=== PATIENT | male | born 1970 | race Caucasian/White ===

== ENCOUNTER 2016-04-01 14:37 | Inpatient (IN) | payer OTHER, MEDICAID ==
[~2016-04-01] VITALS: Ht 177.8 cm; Wt 90.0 kg
[~2016-04-01 14:37] MED LIST: FLUP5 PO; LITH600 PO
[2016-04-01 16:32] VITALS: BP 133/99
[2016-04-01] MEDS ORDERED: FLUP10 PO (16:42)
[2016-04-01] MEDS ORDERED: INFLUENZA VIRUS VACCINE QVS 2016-17 (3YR+)/PF 60 MCG/0.5 ML SYRINGE IM ONE (19:00)
[2016-04-01 19:32] VITALS: BP 131/87
[2016-04-01] MEDS: ZOLPIDEM TARTRATE 10 MG TABLET PO PRN (20:06)
[2016-04-01] MEDS: FluPHENAZine HCL 10 MG TABLET PO SCH (20:06)
[2016-04-02 05:10] VITALS: BP 120/73
[2016-04-02 08:06] VITALS: BP 144/94
[2016-04-02] MEDS ORDERED: MAG HYDROX/AL HYDROX/SIMETH ES 30 ML SUSPENSION UDCUP PO PRN (08:30)
[2016-04-02] MEDS ORDERED: MAGNESIUM HYDROXIDE SUSPENSION 30 ML UDCUP PO PRN (08:30)
[2016-04-02] MEDS ORDERED: PETROLATUM,WHITE 71 GM JELLY TP PRN (08:30)
[2016-04-02] MEDS ORDERED: ACETAMINOPHEN 325 MG TABLET PO PRN (08:30)
[2016-04-02] MEDS ORDERED: CloNIDine HCL 0.1 MG TABLET PO PRN (08:30)
[2016-04-02] MEDS ORDERED: ALBUTEROL SULFATE HFA 90 MCG/PUFF 8 GM INHALER IH PRN (08:30)
[2016-04-02] MEDS ORDERED: IBUPROFEN 600 MG TABLET PO PRN (08:30)
[2016-04-02] MEDS ORDERED: BENZOCAINE/MENTHOL LOZENGE MM PRN (08:30)
[2016-04-02] MEDS ORDERED: BACITRACIN 28.4 GM OINTMENT TP PRN (08:30)
[2016-04-02] MEDS ORDERED: ONDANSETRON HCL 4 MG TABLET PO PRN (08:30)
[2016-04-02] MEDS: LITHIUM CARBONATE 600 MG CAPSULE PO SCH (09:24)
[2016-04-02] MEDS ORDERED: HALOPERIDOL LACTATE 5 MG/ML VIAL IM ONE (13:30)
[2016-04-02] MEDS ORDERED: DiphenhydrAMINE HCL 50 MG/ML VIAL IM ONE (13:30)
[2016-04-02] MEDS ORDERED: LORazepam 2 MG/ML VIAL IM ONE (13:30)
[2016-04-02 16:32] VITALS: BP 124/72
[2016-04-02] MEDS: FluPHENAZine HCL 10 MG TABLET PO SCH (20:06)
[2016-04-03 07:06] VITALS: BP 137/79
[2016-04-03 07:56] LABS: BASOPHILS % (AUTO) 0.7 % (0.0-2.0); EOSINOPHILS % (AUTO) 3.3 % (1.0-6.0); HEMATOCRIT 44.8 % (41-53); LYMPHOCYTES # (AUTO) 2.1 K/uL (1.0-4.8); LYMPHOCYTES % (AUTO) 22.4 % (22.0-44.0); MEAN CORPUSCULAR HEMOGLOBIN 30.6 pg (26.0-34.0); MEAN CORPUSCULAR HGB CONC 33.5 G/dL (31.0-37.0); MEAN CORPUSCULAR VOLUME 91 fL (80-100); MONOCYTES # (AUTO) 0.5 K/uL (0.1-1.0); MONOCYTES % (AUTO) 5.6 % (2.0-9.0); NEUTROPHILS # (AUTO) 6.3 K/uL (1.8-7.7); PLATELET COUNT (AUTO) 316 K/uL (150-450); RED BLOOD CELL COUNT(AUTO) 4.91 MIL/uL (4.50-5.90); WHITE BLOOD COUNT (AUTO) 9.2 K/uL (4.5-11.0)
[2016-04-03 08:03] LABS: ALANINE AMINOTRANSFERASE 34 U/L (12-78); ALBUMIN 3.4 g/dL (3.4-5.0); ANION GAP 11 mmol/L (8-16); ASPARTATE AMINOTRANSFERASE 11 U/L (15-37); BILIRUBIN,TOTAL 0.2 mg/dL (0.1-1.0); CALCIUM, TOTAL 8.6 mg/dL (8.8-10.5); CARBON DIOXIDE 25 mmol/L (22-29); CHLORIDE 107 mmol/L (98-107); CREATININE 0.82 mg/dL (0.60-1.30); GLOMERULAR FILTR. RATE CALC > 60 mL/min (>60); POTASSIUM 3.1 mmol/L (3.5-5.1); SODIUM SERUM 143 mmol/L (136-145); TOTAL PROTEIN, SERUM 6.4 g/dL (6.4-8.2); UREA NITROGEN, BLOOD 15 mg/dL (7-18)
[2016-04-03] MEDS: FluPHENAZine HCL 10 MG TABLET PO SCH ×2 (09:44→16:33)
[2016-04-03] MEDS: LITHIUM CARBONATE 600 MG CAPSULE PO SCH (09:44)
[2016-04-03 16:01] VITALS: BP 128/85
[2016-04-03] MEDS ORDERED: LORazepam 2 MG/ML VIAL IM ONE (16:15)
[2016-04-03] MEDS ORDERED: DiphenhydrAMINE HCL 50 MG/ML VIAL IM ONE (16:15)
[2016-04-03] MEDS ORDERED: FluPHENAZine HCL 2.5 MG/ML INJ IM ONE (16:15)
[2016-04-03 16:30] VITALS: BP 120/78
[2016-04-03 16:45] VITALS: BP 126/86
[2016-04-03 17:30] VITALS: BP 119/79
[2016-04-03] MEDS ORDERED: POTASSIUM CHLORIDE 10% 40 MEQ/30 ML LIQUID UDCUP PO ONE (18:15)
[2016-04-03] MEDS: DIVALPROEX SODIUM 500 MG ER TABLET PO SCH (20:24)
[2016-04-04 07:04] VITALS: BP 129/80
[2016-04-04 08:08] VITALS: BP 140/86
[2016-04-04] MEDS: FluPHENAZine HCL 10 MG TABLET PO SCH ×2 (09:11→16:16)
[2016-04-04] MEDS: LITHIUM CARBONATE 600 MG CAPSULE PO SCH (09:11)
[2016-04-04 16:00] VITALS: BP 124/81
[2016-04-04] MEDS: LORazepam 2 MG TABLET PO PRN (16:16)
[2016-04-04] MEDS ORDERED: POTASSIUM CHLORIDE 20 MEQ ER TABLET PO ONE (18:00)
[2016-04-04] MEDS: DIVALPROEX SODIUM 500 MG ER TABLET PO SCH (20:35)
[2016-04-04] MEDS: ZOLPIDEM TARTRATE 10 MG TABLET PO PRN (22:04)
[2016-04-05 06:31] VITALS: BP 121/81
[2016-04-05] MEDS: FluPHENAZine HCL 10 MG TABLET PO SCH ×2 (09:27→16:28)
[2016-04-05] MEDS: LITHIUM CARBONATE 600 MG CAPSULE PO SCH (09:28)
[2016-04-05 09:54] VITALS: BP 126/72
[2016-04-05 16:03] VITALS: BP 136/85
[2016-04-05] MEDS: LORazepam 2 MG TABLET PO PRN ×2 (16:28→20:32)
[2016-04-05] MEDS: ZOLPIDEM TARTRATE 10 MG TABLET PO PRN (20:32)
[2016-04-05] MEDS: DIVALPROEX SODIUM 500 MG ER TABLET PO SCH (20:32)
[2016-04-06 06:50] VITALS: BP 112/97
[2016-04-06 08:38] VITALS: BP 133/85
[2016-04-06] MEDS: LORazepam 2 MG TABLET PO PRN ×3 (08:53→21:04)
[2016-04-06] MEDS: LITHIUM CARBONATE 600 MG CAPSULE PO SCH (08:53)
[2016-04-06] MEDS: FluPHENAZine HCL 10 MG TABLET PO SCH ×2 (08:53→17:04)
[2016-04-06] MEDS: DIVALPROEX SODIUM 500 MG ER TABLET PO SCH ×2 (08:53→21:04)
[2016-04-06 16:00] VITALS: BP 134/87
[2016-04-06] MEDS: ZOLPIDEM TARTRATE 10 MG TABLET PO PRN (21:05)
[2016-04-07 02:06] VITALS: BP 135/90
[2016-04-07 08:08] VITALS: BP 141/91
[2016-04-07] MEDS: FluPHENAZine HCL 10 MG TABLET PO SCH ×2 (09:41→17:12)
[2016-04-07] MEDS: LITHIUM CARBONATE 600 MG CAPSULE PO SCH (09:41)
[2016-04-07] MEDS: DIVALPROEX SODIUM 500 MG ER TABLET PO SCH ×2 (09:43→20:26)
[2016-04-07 16:29] VITALS: BP 112/68
[2016-04-08 06:27] VITALS: BP 116/76
[2016-04-08 08:08] VITALS: BP 121/75
[2016-04-08] MEDS: DIVALPROEX SODIUM 500 MG ER TABLET PO SCH ×2 (09:43→20:38)
[2016-04-08] MEDS: FluPHENAZine HCL 10 MG TABLET PO SCH ×2 (09:43→16:21)
[2016-04-08] MEDS: LITHIUM CARBONATE 600 MG CAPSULE PO SCH (09:43)
[2016-04-08 16:00] VITALS: BP 114/74
[2016-04-08] MEDS: LORazepam 2 MG TABLET PO PRN (16:21)
[2016-04-08] MEDS: TERBINAFINE HCL 1% 30 GM CREAM TP SCH (21:25)
[2016-04-09 06:33] VITALS: BP 109/75
[2016-04-09 08:08] VITALS: BP 133/79
[2016-04-09] MEDS: FluPHENAZine HCL 10 MG TABLET PO SCH ×2 (09:13→17:05)
[2016-04-09] MEDS: TERBINAFINE HCL 1% 30 GM CREAM TP SCH ×2 (09:13→17:05)
[2016-04-09] MEDS: DIVALPROEX SODIUM 500 MG ER TABLET PO SCH ×2 (09:13→20:26)
[2016-04-09] MEDS: LITHIUM CARBONATE 600 MG CAPSULE PO SCH (09:13)
[2016-04-09 16:01] VITALS: BP 124/72
[2016-04-10] VITALS: BP 138/84
[2016-04-10] MEDS: ZOLPIDEM TARTRATE 10 MG TABLET PO PRN (00:06)
[2016-04-10] MEDS: LORazepam 2 MG TABLET PO PRN ×2 (00:06→08:59)
[2016-04-10 07:34] LABS: BASOPHILS % (AUTO) 0.8 % (0.0-2.0); EOSINOPHILS % (AUTO) 5.3 % (1.0-6.0); HEMATOCRIT 45.2 % (41-53); HEMOGLOBIN 15.2 g/dL (13.5-17.5); LYMPHOCYTES # (AUTO) 2.4 K/uL (1.0-4.8); LYMPHOCYTES % (AUTO) 24.1 % (22.0-44.0); MEAN CORPUSCULAR HEMOGLOBIN 30.6 pg (26.0-34.0); MEAN CORPUSCULAR HGB CONC 33.7 G/dL (31.0-37.0); MEAN CORPUSCULAR VOLUME 91 fL (80-100); MONOCYTES # (AUTO) 0.7 K/uL (0.1-1.0); MONOCYTES % (AUTO) 7.1 % (2.0-9.0); NEUTROPHILS # (AUTO) 6.2 K/uL (1.8-7.7); NEUTROPHILS % (AUTO) 62.7 % (40.0-70.0); PLATELET COUNT (AUTO) 290 K/uL (150-450); RED BLOOD CELL COUNT(AUTO) 4.99 MIL/uL (4.50-5.90); RED CELL DISTRIBUTION WIDTH 12.8 % (11.5-14.5); WHITE BLOOD COUNT (AUTO) 9.9 K/uL (4.5-11.0)
[2016-04-10 08:08] VITALS: BP 148/87
[2016-04-10] MEDS: LITHIUM CARBONATE 600 MG CAPSULE PO SCH (08:59)
[2016-04-10] MEDS: FluPHENAZine HCL 10 MG TABLET PO SCH ×2 (08:59→17:16)
[2016-04-10] MEDS: TERBINAFINE HCL 1% 30 GM CREAM TP SCH ×2 (08:59→17:16)
[2016-04-10] MEDS: DIVALPROEX SODIUM 500 MG ER TABLET PO SCH ×2 (08:59→20:34)
[2016-04-10] MEDS ORDERED: CloZAPine 25 MG TABLET PO SCH (09:00)
[2016-04-10 16:00] VITALS: BP 134/89
[2016-04-11 04:14] VITALS: BP 120/90
[2016-04-11 08:22] VITALS: BP 116/76
[2016-04-11] MEDS ORDERED: CloZAPine 25 MG TABLET PO SCH ×2 (09:00→21:00)
[2016-04-11] MEDS: DIVALPROEX SODIUM 500 MG ER TABLET PO SCH ×2 (09:34→20:09)
[2016-04-11] MEDS: LITHIUM CARBONATE 600 MG CAPSULE PO SCH (09:34)
[2016-04-11] MEDS: FluPHENAZine HCL 10 MG TABLET PO SCH ×2 (09:34→16:42)
[2016-04-11] MEDS: TERBINAFINE HCL 1% 30 GM CREAM TP SCH ×2 (09:34→16:42)
[2016-04-11] MEDS ORDERED: TUBERCULIN, PURIFIED PROTEIN DERIVATIVE 5 TU/0.1 ML SYG ID ONE (15:15)
[2016-04-11 16:19] VITALS: BP 130/84
[2016-04-11] MEDS: ZOLPIDEM TARTRATE 10 MG TABLET PO PRN (20:10)
[2016-04-12 07:07] VITALS: BP 140/91
[2016-04-12 08:10] VITALS: BP 126/82
[2016-04-12] MEDS ORDERED: CloZAPine 25 MG TABLET PO SCH ×2 (09:00→21:00)
[2016-04-12] MEDS: DIVALPROEX SODIUM 500 MG ER TABLET PO SCH ×2 (10:02→20:36)
[2016-04-12] MEDS: FluPHENAZine HCL 10 MG TABLET PO SCH ×2 (10:02→16:50)
[2016-04-12] MEDS: TERBINAFINE HCL 1% 30 GM CREAM TP SCH ×2 (10:02→16:50)
[2016-04-12] MEDS: LITHIUM CARBONATE 600 MG CAPSULE PO SCH (10:02)
[2016-04-12 16:01] VITALS: BP 138/89
[2016-04-13 01:01] VITALS: BP 135/94
[2016-04-13] MEDS: ZOLPIDEM TARTRATE 10 MG TABLET PO PRN (01:03)
[2016-04-13] MEDS: CloZAPine 25 MG TABLET PO SCH ×2 (08:30→20:28)
[2016-04-13] MEDS: DIVALPROEX SODIUM 500 MG ER TABLET PO SCH ×2 (08:30→20:28)
[2016-04-13] MEDS: TERBINAFINE HCL 1% 30 GM CREAM TP SCH ×2 (08:30→16:58)
[2016-04-13] MEDS: LITHIUM CARBONATE 600 MG CAPSULE PO SCH (08:30)
[2016-04-13] MEDS: MUPIROCIN CALCIUM 2% 15 GM CREAM TP SCH ×2 (08:30→16:57)
[2016-04-13] MEDS: FluPHENAZine HCL 10 MG TABLET PO SCH ×2 (08:30→16:57)
[2016-04-13 08:33] VITALS: BP 118/74
[2016-04-13] MEDS: LORazepam 2 MG TABLET PO PRN ×2 (09:01→20:28)
[2016-04-13 16:06] VITALS: BP 119/77
[2016-04-14 05:09] VITALS: BP 123/73
[2016-04-14] MEDS: FluPHENAZine HCL 10 MG TABLET PO SCH ×2 (08:11→17:00)
[2016-04-14] MEDS: DIVALPROEX SODIUM 500 MG ER TABLET PO SCH ×2 (08:11→21:00)
[2016-04-14] MEDS: LITHIUM CARBONATE 600 MG CAPSULE PO SCH (08:11)
[2016-04-14] MEDS: MUPIROCIN CALCIUM 2% 15 GM CREAM TP SCH ×2 (08:12→17:00)
[2016-04-14] MEDS: CloZAPine 25 MG TABLET PO SCH (08:12)
[2016-04-14] MEDS: TERBINAFINE HCL 1% 30 GM CREAM TP SCH ×2 (08:12→17:00)
[2016-04-14 08:47] VITALS: BP 104/67
[2016-04-15] MEDS: LITHIUM CARBONATE 600 MG CAPSULE PO SCH (09:00)
[2016-04-15] MEDS: TERBINAFINE HCL 1% 30 GM CREAM TP SCH ×2 (09:00→17:00)
[2016-04-15] MEDS: MUPIROCIN CALCIUM 2% 15 GM CREAM TP SCH ×2 (09:00→17:00)
[2016-04-15] MEDS: DIVALPROEX SODIUM 500 MG ER TABLET PO SCH ×2 (09:00→21:00)
[2016-04-15] MEDS ORDERED: CloZAPine 25 MG TABLET PO SCH (09:00)
[2016-04-15] MEDS: FluPHENAZine HCL 10 MG TABLET PO SCH ×2 (09:00→17:00)
[2016-04-15] MEDS ORDERED: CloZAPine 100 MG TABLET PO SCH (21:00)
[2016-04-16 06:52] VITALS: BP 122/82
[2016-04-16 08:10] VITALS: BP 118/69
[2016-04-16] MEDS: DIVALPROEX SODIUM 500 MG ER TABLET PO SCH ×2 (09:00→20:09)
[2016-04-16] MEDS: LITHIUM CARBONATE 600 MG CAPSULE PO SCH (09:00)
[2016-04-16] MEDS ORDERED: CloZAPine 25 MG TABLET PO SCH (09:00)
[2016-04-16] MEDS: FluPHENAZine HCL 10 MG TABLET PO SCH ×2 (09:59→16:33)
[2016-04-16] MEDS: TERBINAFINE HCL 1% 30 GM CREAM TP SCH ×2 (09:59→16:33)
[2016-04-16] MEDS: MUPIROCIN CALCIUM 2% 15 GM CREAM TP SCH ×2 (09:59→16:33)
[2016-04-16] MEDS: LORazepam 2 MG TABLET PO PRN (10:01)
[2016-04-16] MEDS: QUEtiapine FUMARATE 100 MG TABLET PO PRN (10:01)
[2016-04-16 16:00] VITALS: BP 120/60
[2016-04-16] MEDS ORDERED: CloZAPine 100 MG TABLET PO SCH (21:00)
[2016-04-17 06:04] VITALS: BP 114/72
[2016-04-17 07:42] LABS: BASOPHILS % (AUTO) 0.5 % (0.0-2.0); HEMATOCRIT 46.8 % (41-53); HEMOGLOBIN 15.7 g/dL (13.5-17.5); LYMPHOCYTES # (AUTO) 2.4 K/uL (1.0-4.8); LYMPHOCYTES % (AUTO) 20.2 % (22.0-44.0); MEAN CORPUSCULAR HEMOGLOBIN 30.9 pg (26.0-34.0); MEAN CORPUSCULAR HGB CONC 33.5 G/dL (31.0-37.0); MEAN CORPUSCULAR VOLUME 92 fL (80-100); MONOCYTES # (AUTO) 0.8 K/uL (0.1-1.0); MONOCYTES % (AUTO) 6.4 % (2.0-9.0); NEUTROPHILS # (AUTO) 8.1 K/uL (1.8-7.7); NEUTROPHILS % (AUTO) 67.9 % (40.0-70.0); PLATELET COUNT (AUTO) 251 K/uL (150-450); RED BLOOD CELL COUNT(AUTO) 5.07 MIL/uL (4.50-5.90)
[2016-04-17 08:08] VITALS: BP 118/86
[2016-04-17] MEDS ORDERED: CloZAPine 25 MG TABLET PO SCH (09:00)
[2016-04-17] MEDS: FluPHENAZine HCL 10 MG TABLET PO SCH ×2 (09:39→17:02)
[2016-04-17] MEDS: LITHIUM CARBONATE 600 MG CAPSULE PO SCH (09:39)
[2016-04-17] MEDS: TERBINAFINE HCL 1% 30 GM CREAM TP SCH ×2 (09:39→17:02)
[2016-04-17] MEDS: DIVALPROEX SODIUM 500 MG ER TABLET PO SCH ×2 (09:39→20:31)
[2016-04-17] MEDS: MUPIROCIN CALCIUM 2% 15 GM CREAM TP SCH ×2 (09:39→17:02)
[2016-04-17] MEDS ORDERED: GuaiFENesin/D-METHORPHAN/PHENYLEPH 5 ML LIQUID ORAL.SYG PO PRN (10:30)
[2016-04-17 16:10] VITALS: BP 103/67
[2016-04-17] MEDS: ZOLPIDEM TARTRATE 10 MG TABLET PO PRN (20:31)
[2016-04-17] MEDS ORDERED: CloZAPine 100 MG TABLET PO SCH (21:00)
[2016-04-18 07:25] VITALS: BP 103/76
[2016-04-18 08:08] VITALS: BP 126/78
[2016-04-18] MEDS: TERBINAFINE HCL 1% 30 GM CREAM TP SCH ×2 (09:09→17:04)
[2016-04-18] MEDS: CloZAPine 100 MG TABLET PO SCH ×2 (09:10→20:26)
[2016-04-18] MEDS: FluPHENAZine HCL 10 MG TABLET PO SCH ×2 (09:10→17:04)
[2016-04-18] MEDS: DIVALPROEX SODIUM 500 MG ER TABLET PO SCH ×2 (09:10→20:26)
[2016-04-18] MEDS: MUPIROCIN CALCIUM 2% 15 GM CREAM TP SCH ×2 (09:10→17:04)
[2016-04-18] MEDS: LITHIUM CARBONATE 600 MG CAPSULE PO SCH (09:10)
[2016-04-18] MEDS: LORazepam 2 MG TABLET PO PRN ×2 (09:11→17:04)
[2016-04-18] MEDS: QUEtiapine FUMARATE 100 MG TABLET PO PRN (09:11)
[2016-04-18 16:11] VITALS: BP 133/82
[2016-04-19 07:08] VITALS: BP 137/93
[2016-04-19 08:08] VITALS: BP 113/73
[2016-04-19] MEDS: FluPHENAZine HCL 10 MG TABLET PO SCH ×2 (09:03→16:48)
[2016-04-19] MEDS: DIVALPROEX SODIUM 500 MG ER TABLET PO SCH ×2 (09:03→20:45)
[2016-04-19] MEDS: LITHIUM CARBONATE 600 MG CAPSULE PO SCH (09:03)
[2016-04-19] MEDS: CloZAPine 100 MG TABLET PO SCH ×2 (09:03→20:46)
[2016-04-19] MEDS: MUPIROCIN CALCIUM 2% 15 GM CREAM TP SCH ×2 (09:03→16:47)
[2016-04-19] MEDS: TERBINAFINE HCL 1% 30 GM CREAM TP SCH ×2 (09:04→16:47)
[2016-04-19 16:09] VITALS: BP 116/65
[2016-04-19] MEDS: LORazepam 2 MG TABLET PO PRN (16:47)
[2016-04-19] MEDS: ZOLPIDEM TARTRATE 10 MG TABLET PO PRN (20:46)
[2016-04-20 06:41] VITALS: BP 123/73
[2016-04-20 08:14] VITALS: BP 123/73
[2016-04-20] MEDS ORDERED: CloZAPine 25 MG TABLET PO SCH (09:00)
[2016-04-20] MEDS: FluPHENAZine HCL 10 MG TABLET PO SCH ×2 (09:12→17:26)
[2016-04-20] MEDS: LITHIUM CARBONATE 600 MG CAPSULE PO SCH (09:12)
[2016-04-20] MEDS: DIVALPROEX SODIUM 500 MG ER TABLET PO SCH ×2 (09:12→20:37)
[2016-04-20] MEDS: MUPIROCIN CALCIUM 2% 15 GM CREAM TP SCH ×2 (09:13→17:26)
[2016-04-20] MEDS: TERBINAFINE HCL 1% 30 GM CREAM TP SCH ×2 (09:13→17:26)
[2016-04-20 16:05] VITALS: BP 118/79
[2016-04-20] MEDS: LORazepam 2 MG TABLET PO PRN (17:26)
[2016-04-20] MEDS: ZOLPIDEM TARTRATE 10 MG TABLET PO PRN (20:37)
[2016-04-20] MEDS ORDERED: CloZAPine 100 MG TABLET PO SCH (21:00)
[2016-04-21 05:31] VITALS: BP 123/72
[2016-04-21 08:28] VITALS: BP 126/75
[2016-04-21] MEDS ORDERED: CloZAPine 25 MG TABLET PO SCH (09:00)
[2016-04-21] MEDS: LITHIUM CARBONATE 600 MG CAPSULE PO SCH (09:51)
[2016-04-21] MEDS: MUPIROCIN CALCIUM 2% 15 GM CREAM TP SCH ×2 (09:51→17:34)
[2016-04-21] MEDS: TERBINAFINE HCL 1% 30 GM CREAM TP SCH ×2 (09:51→17:35)
[2016-04-21] MEDS: FluPHENAZine HCL 10 MG TABLET PO SCH ×2 (09:51→17:34)
[2016-04-21] MEDS: DIVALPROEX SODIUM 500 MG ER TABLET PO SCH ×2 (09:51→20:33)
[2016-04-21 16:25] VITALS: BP 121/84
[2016-04-21] MEDS ORDERED: CloZAPine 100 MG TABLET PO SCH (21:00)
[2016-04-21] MEDS ORDERED: DOCUSATE SODIUM 250 MG CAPSULE PO SCH (21:00)
[2016-04-22 05:45] VITALS: BP 124/81
[2016-04-22 08:35] VITALS: BP 117/65
[2016-04-22] MEDS: CloZAPine 100 MG TABLET PO SCH ×2 (10:01→20:48)
[2016-04-22] MEDS: LITHIUM CARBONATE 600 MG CAPSULE PO SCH (10:01)
[2016-04-22] MEDS: FluPHENAZine HCL 10 MG TABLET PO SCH ×2 (10:01→16:56)
[2016-04-22] MEDS: DIVALPROEX SODIUM 500 MG ER TABLET PO SCH ×2 (10:01→20:48)
[2016-04-22] MEDS: MUPIROCIN CALCIUM 2% 15 GM CREAM TP SCH ×2 (10:01→16:56)
[2016-04-22] MEDS: TERBINAFINE HCL 1% 30 GM CREAM TP SCH ×2 (10:02→16:56)
[2016-04-22] MEDS: LOPERAMIDE HCL 2 MG CAPSULE PO PRN ×2 (13:26→17:31)
[2016-04-22 16:12] VITALS: BP 114/74
[2016-04-22] MEDS: ZOLPIDEM TARTRATE 10 MG TABLET PO PRN (20:48)
[2016-04-22] MEDS: LORazepam 2 MG TABLET PO PRN (20:48)
[2016-04-23 00:35] VITALS: BP 108/76
[2016-04-23] MEDS: LORazepam 2 MG TABLET PO PRN ×2 (00:53→17:00)
[2016-04-23] MEDS: QUEtiapine FUMARATE 100 MG TABLET PO PRN (00:53)
[2016-04-23 08:08] VITALS: BP 104/61
[2016-04-23] MEDS: CloZAPine 100 MG TABLET PO SCH ×2 (09:48→20:35)
[2016-04-23] MEDS: TERBINAFINE HCL 1% 30 GM CREAM TP SCH ×2 (09:48→17:01)
[2016-04-23] MEDS: LITHIUM CARBONATE 600 MG CAPSULE PO SCH (09:48)
[2016-04-23] MEDS: DIVALPROEX SODIUM 500 MG ER TABLET PO SCH ×2 (09:48→20:35)
[2016-04-23] MEDS: FluPHENAZine HCL 10 MG TABLET PO SCH ×2 (09:48→17:00)
[2016-04-23] MEDS ORDERED: BENZTROPINE MESYLATE 1 MG TABLET PO ONE (11:15)
[2016-04-23 16:00] VITALS: BP 122/72
[2016-04-23] MEDS: BENZTROPINE MESYLATE 1 MG TABLET PO SCH (17:00)
[2016-04-24 03:32] VITALS: BP 108/63
[2016-04-24] MEDS: LORazepam 2 MG TABLET PO PRN (03:33)
[2016-04-24 08:00] LABS: BASOPHILS % (AUTO) 0.8 % (0.0-2.0); EOSINOPHILS % (AUTO) 4.1 % (1.0-6.0); HEMATOCRIT 44.5 % (41-53); LYMPHOCYTES # (AUTO) 1.9 K/uL (1.0-4.8); LYMPHOCYTES % (AUTO) 14.2 % (22.0-44.0); MEAN CORPUSCULAR HEMOGLOBIN 30.7 pg (26.0-34.0); MEAN CORPUSCULAR HGB CONC 33.8 G/dL (31.0-37.0); MEAN CORPUSCULAR VOLUME 91 fL (80-100); MONOCYTES # (AUTO) 1.1 K/uL (0.1-1.0); MONOCYTES % (AUTO) 8.6 % (2.0-9.0); NEUTROPHILS # (AUTO) 9.7 K/uL (1.8-7.7); NEUTROPHILS % (AUTO) 72.3 % (40.0-70.0); PLATELET COUNT (AUTO) 256 K/uL (150-450); RED CELL DISTRIBUTION WIDTH 12.7 % (11.5-14.5); WHITE BLOOD COUNT (AUTO) 13.4 K/uL (4.5-11.0)
[2016-04-24 08:08] VITALS: BP 114/79
[2016-04-24 08:38] LABS: CREATINE KINASE, TOTAL 36 U/L (39-308)
[2016-04-24] MEDS: FluPHENAZine HCL 10 MG TABLET PO SCH ×2 (09:12→17:03)
[2016-04-24] MEDS: LITHIUM CARBONATE 600 MG CAPSULE PO SCH (09:12)
[2016-04-24] MEDS: BENZTROPINE MESYLATE 1 MG TABLET PO SCH ×2 (09:12→17:03)
[2016-04-24] MEDS: TERBINAFINE HCL 1% 30 GM CREAM TP SCH ×2 (09:13→17:03)
[2016-04-24] MEDS: DIVALPROEX SODIUM 500 MG ER TABLET PO SCH ×2 (09:13→20:23)
[2016-04-24 16:24] VITALS: BP 131/65
[2016-04-24] MEDS ORDERED: CloZAPine 100 MG TABLET PO SCH (21:00)
[2016-04-25 05:30] VITALS: BP 114/73
[2016-04-25 08:38] VITALS: BP 101/69
[2016-04-25] MEDS: DIVALPROEX SODIUM 500 MG ER TABLET PO SCH ×2 (09:57→20:47)
[2016-04-25] MEDS: FluPHENAZine HCL 10 MG TABLET PO SCH ×2 (09:57→16:49)
[2016-04-25] MEDS: LITHIUM CARBONATE 600 MG CAPSULE PO SCH (09:57)
[2016-04-25] MEDS: LORazepam 2 MG TABLET PO PRN ×2 (09:57→16:49)
[2016-04-25] MEDS: BENZTROPINE MESYLATE 1 MG TABLET PO SCH ×2 (09:57→16:49)
[2016-04-25] MEDS: TERBINAFINE HCL 1% 30 GM CREAM TP SCH ×2 (09:57→16:49)
[2016-04-25 16:10] VITALS: BP 108/73
[2016-04-25] MEDS ORDERED: CloZAPine 100 MG TABLET PO ONE (20:15)
[2016-04-25] MEDS: LOPERAMIDE HCL 2 MG CAPSULE PO PRN (21:00)
[2016-04-26 06:32] VITALS: BP 101/68
[2016-04-26 08:08] VITALS: BP 111/63
[2016-04-26 08:11] LABS: BASOPHILS % (AUTO) 0.3 % (0.0-2.0); EOSINOPHILS % (AUTO) 6.7 % (1.0-6.0); HEMATOCRIT 40.4 % (41-53); HEMOGLOBIN 13.6 g/dL (13.5-17.5); LYMPHOCYTES % (AUTO) 16.9 % (22.0-44.0); MEAN CORPUSCULAR HEMOGLOBIN 30.6 pg (26.0-34.0); MEAN CORPUSCULAR HGB CONC 33.7 G/dL (31.0-37.0); MEAN CORPUSCULAR VOLUME 91 fL (80-100); MONOCYTES # (AUTO) 0.7 K/uL (0.1-1.0); MONOCYTES % (AUTO) 6.3 % (2.0-9.0); NEUTROPHILS # (AUTO) 8.3 K/uL (1.8-7.7); NEUTROPHILS % (AUTO) 69.8 % (40.0-70.0); PLATELET COUNT (AUTO) 284 K/uL (150-450); RED BLOOD CELL COUNT(AUTO) 4.46 MIL/uL (4.50-5.90); RED CELL DISTRIBUTION WIDTH 12.5 % (11.5-14.5); WHITE BLOOD COUNT (AUTO) 11.8 K/uL (4.5-11.0)
[2016-04-26 08:26] LABS: ALANINE AMINOTRANSFERASE 40 U/L (12-78); ALBUMIN 2.6 g/dL (3.4-5.0); ANION GAP 7 mmol/L (8-16); ASPARTATE AMINOTRANSFERASE 21 U/L (15-37); BILIRUBIN,TOTAL 0.2 mg/dL (0.1-1.0); CALCIUM, TOTAL 8.2 mg/dL (8.8-10.5); CARBON DIOXIDE 29 mmol/L (22-29); CHLORIDE 102 mmol/L (98-107); CREATININE 0.99 mg/dL (0.60-1.30); GLOMERULAR FILTR. RATE CALC > 60 mL/min (>60); LACTATE DEHYDROGENASE 171 U/L (85-227); POTASSIUM 3.6 mmol/L (3.5-5.1); SODIUM SERUM 138 mmol/L (136-145); UREA NITROGEN, BLOOD 18 mg/dL (7-18)
[2016-04-26] MEDS: TERBINAFINE HCL 1% 30 GM CREAM TP SCH ×2 (09:27→17:04)
[2016-04-26] MEDS: LITHIUM CARBONATE 600 MG CAPSULE PO SCH (09:27)
[2016-04-26] MEDS: DIVALPROEX SODIUM 500 MG ER TABLET PO SCH ×2 (09:27→20:41)
[2016-04-26] MEDS: FluPHENAZine HCL 10 MG TABLET PO SCH ×2 (09:27→16:51)
[2016-04-26] MEDS: BENZTROPINE MESYLATE 1 MG TABLET PO SCH ×2 (09:27→16:51)
[2016-04-26] MEDS: LORazepam 2 MG TABLET PO PRN ×2 (09:28→20:42)
[2016-04-26 11:26] LABS: CLOZAPINE 541 ng/mL (350-650); CLOZAPINE & NORCLOZAPINE 694 ng/mL; NORCLOZAPINE 153 ng/mL (Not Estab.)
[2016-04-26 16:09] VITALS: BP 115/70
[2016-04-26] MEDS ORDERED: CloZAPine 25 MG TABLET PO ONE (21:00)
[2016-04-26] MEDS: ZOLPIDEM TARTRATE 10 MG TABLET PO PRN (22:03)
[2016-04-27 01:52] VITALS: BP 123/77
[2016-04-27 08:08] VITALS: BP 117/77
[2016-04-27] MEDS: TERBINAFINE HCL 1% 30 GM CREAM TP SCH ×2 (09:57→17:07)
[2016-04-27] MEDS: LITHIUM CARBONATE 600 MG CAPSULE PO SCH (09:57)
[2016-04-27] MEDS: BENZTROPINE MESYLATE 1 MG TABLET PO SCH ×2 (09:57→17:07)
[2016-04-27] MEDS: DIVALPROEX SODIUM 500 MG ER TABLET PO SCH ×2 (09:57→20:40)
[2016-04-27] MEDS: FluPHENAZine HCL 10 MG TABLET PO SCH ×2 (09:57→17:07)
[2016-04-27 16:26] VITALS: BP 105/68
[2016-04-28 06:40] VITALS: BP 102/61
[2016-04-28 08:08] VITALS: BP 110/72
[2016-04-28] MEDS: LITHIUM CARBONATE 600 MG CAPSULE PO SCH (09:25)
[2016-04-28] MEDS: TERBINAFINE HCL 1% 30 GM CREAM TP SCH ×2 (09:25→17:02)
[2016-04-28] MEDS: DIVALPROEX SODIUM 500 MG ER TABLET PO SCH ×2 (09:25→20:10)
[2016-04-28] MEDS: BENZTROPINE MESYLATE 1 MG TABLET PO SCH ×2 (09:25→16:48)
[2016-04-28] MEDS: FluPHENAZine HCL 10 MG TABLET PO SCH ×2 (09:25→16:48)
[2016-04-28 16:29] VITALS: BP 126/72
[2016-04-29 06:43] VITALS: BP 105/79
[2016-04-29 08:07] VITALS: BP 109/65
[2016-04-29] MEDS: LITHIUM CARBONATE 600 MG CAPSULE PO SCH (09:25)
[2016-04-29] MEDS: BENZTROPINE MESYLATE 1 MG TABLET PO SCH ×2 (09:25→16:39)
[2016-04-29] MEDS: FluPHENAZine HCL 10 MG TABLET PO SCH ×2 (09:25→16:39)
[2016-04-29] MEDS: TERBINAFINE HCL 1% 30 GM CREAM TP SCH ×2 (09:25→16:39)
[2016-04-29] MEDS: DIVALPROEX SODIUM 500 MG ER TABLET PO SCH ×2 (09:26→20:28)
[2016-04-29 16:45] VITALS: BP 113/88
[2016-04-30 00:14] VITALS: BP 116/78
[2016-04-30 08:08] VITALS: BP 116/71
[2016-04-30] MEDS: TERBINAFINE HCL 1% 30 GM CREAM TP SCH ×2 (09:19→16:36)
[2016-04-30] MEDS: BENZTROPINE MESYLATE 1 MG TABLET PO SCH ×2 (09:20→16:36)
[2016-04-30] MEDS: FluPHENAZine HCL 10 MG TABLET PO SCH ×2 (09:20→16:36)
[2016-04-30] MEDS: OLANZapine 5 MG RAPDIS TABLET PO SCH ×2 (09:20→16:36)
[2016-04-30] MEDS: DIVALPROEX SODIUM 500 MG ER TABLET PO SCH ×2 (09:20→20:54)
[2016-04-30 16:08] VITALS: BP 120/76
[2016-04-30] MEDS: ZOLPIDEM TARTRATE 10 MG TABLET PO PRN (21:24)
[2016-04-30] MEDS: LORazepam 2 MG TABLET PO PRN (22:21)
[2016-05-01 06:40] VITALS: BP 112/73
[2016-05-01 08:08] VITALS: BP 120/74
[2016-05-01] MEDS: OLANZapine 5 MG RAPDIS TABLET PO SCH ×2 (09:26→17:06)
[2016-05-01] MEDS: BENZTROPINE MESYLATE 1 MG TABLET PO SCH ×2 (09:26→17:06)
[2016-05-01] MEDS: TERBINAFINE HCL 1% 30 GM CREAM TP SCH ×2 (09:26→17:06)
[2016-05-01] MEDS: LORazepam 2 MG TABLET PO PRN ×2 (09:26→20:53)
[2016-05-01] MEDS: FluPHENAZine HCL 10 MG TABLET PO SCH ×2 (09:26→17:06)
[2016-05-01] MEDS: DIVALPROEX SODIUM 500 MG ER TABLET PO SCH ×2 (09:26→20:36)
[2016-05-01 16:00] VITALS: BP 111/72
[2016-05-01] MEDS: ZOLPIDEM TARTRATE 10 MG TABLET PO PRN (20:54)
[2016-05-02 08:23] VITALS: BP 109/68
[2016-05-02] MEDS: FluPHENAZine HCL 10 MG TABLET PO SCH ×2 (09:20→16:49)
[2016-05-02] MEDS: BENZTROPINE MESYLATE 1 MG TABLET PO SCH ×2 (09:20→16:49)
[2016-05-02] MEDS: DIVALPROEX SODIUM 500 MG ER TABLET PO SCH ×2 (09:21→20:42)
[2016-05-02] MEDS: TERBINAFINE HCL 1% 30 GM CREAM TP SCH ×2 (09:21→16:49)
[2016-05-02] MEDS: OLANZapine 5 MG RAPDIS TABLET PO SCH ×2 (09:21→16:49)
[2016-05-02 16:09] VITALS: BP 112/73
[2016-05-02] MEDS: ZOLPIDEM TARTRATE 10 MG TABLET PO PRN (20:35)
[2016-05-03] MEDS: QUEtiapine FUMARATE 100 MG TABLET PO PRN (00:06)
[2016-05-03] MEDS: LORazepam 2 MG TABLET PO PRN ×4 (00:06→22:38)
[2016-05-03 01:00] VITALS: BP 113/86
[2016-05-03 08:08] VITALS: BP 108/62
[2016-05-03] MEDS: FluPHENAZine HCL 10 MG TABLET PO SCH ×2 (08:48→17:04)
[2016-05-03] MEDS: OLANZapine 5 MG RAPDIS TABLET PO SCH ×2 (08:48→17:05)
[2016-05-03] MEDS: BENZTROPINE MESYLATE 1 MG TABLET PO SCH ×2 (08:48→17:04)
[2016-05-03] MEDS: DIVALPROEX SODIUM 500 MG ER TABLET PO SCH ×2 (08:49→20:38)
[2016-05-03] MEDS: TERBINAFINE HCL 1% 30 GM CREAM TP SCH ×2 (09:11→17:05)
[2016-05-03 16:40] VITALS: BP 121/69
[2016-05-03] MEDS: ZOLPIDEM TARTRATE 10 MG TABLET PO PRN (21:04)
[2016-05-04 07:17] VITALS: BP 109/81
[2016-05-04 08:08] VITALS: BP 112/78
[2016-05-04] MEDS: BENZTROPINE MESYLATE 1 MG TABLET PO SCH ×2 (08:23→16:40)
[2016-05-04] MEDS: OLANZapine 5 MG RAPDIS TABLET PO SCH ×2 (08:23→16:40)
[2016-05-04] MEDS: FluPHENAZine HCL 10 MG TABLET PO SCH ×2 (08:24→16:40)
[2016-05-04] MEDS: TERBINAFINE HCL 1% 30 GM CREAM TP SCH ×2 (08:24→16:40)
[2016-05-04] MEDS: DIVALPROEX SODIUM 500 MG ER TABLET PO SCH ×2 (08:24→20:22)
[2016-05-04 16:10] VITALS: BP 112/70
[2016-05-04] MEDS: LORazepam 2 MG TABLET PO PRN ×2 (16:40→22:12)
[2016-05-04] MEDS: ZOLPIDEM TARTRATE 10 MG TABLET PO PRN (21:01)
[2016-05-05 07:12] VITALS: BP 132/80
[2016-05-05 08:32] VITALS: BP 104/71
[2016-05-05] MEDS: BENZTROPINE MESYLATE 1 MG TABLET PO SCH ×2 (08:35→16:28)
[2016-05-05] MEDS: DIVALPROEX SODIUM 500 MG ER TABLET PO SCH ×2 (08:35→21:16)
[2016-05-05] MEDS: OLANZapine 5 MG RAPDIS TABLET PO SCH ×2 (08:35→16:28)
[2016-05-05] MEDS: TERBINAFINE HCL 1% 30 GM CREAM TP SCH ×2 (08:35→16:28)
[2016-05-05] MEDS: FluPHENAZine HCL 10 MG TABLET PO SCH ×2 (08:35→16:28)
[2016-05-05 16:00] VITALS: BP 106/72
[2016-05-05] MEDS: ZOLPIDEM TARTRATE 10 MG TABLET PO PRN (21:16)
[2016-05-06 06:08] VITALS: BP 115/75
[2016-05-06 08:07] VITALS: BP 134/64
[2016-05-06] MEDS: DIVALPROEX SODIUM 500 MG ER TABLET PO SCH ×2 (08:40→20:43)
[2016-05-06] MEDS: FluPHENAZine HCL 10 MG TABLET PO SCH ×2 (08:40→16:37)
[2016-05-06] MEDS: BENZTROPINE MESYLATE 1 MG TABLET PO SCH ×2 (08:40→16:37)
[2016-05-06] MEDS: OLANZapine 5 MG RAPDIS TABLET PO SCH (08:40)
[2016-05-06] MEDS: TERBINAFINE HCL 1% 30 GM CREAM TP SCH ×2 (09:33→16:39)
[2016-05-06 16:11] VITALS: BP 125/71
[2016-05-06] MEDS: OLANZapine 10 MG RAPDIS TABLET PO SCH (16:37)
[2016-05-06] MEDS: ZOLPIDEM TARTRATE 10 MG TABLET PO PRN (20:43)
[2016-05-06] MEDS: LORazepam 2 MG TABLET PO PRN (23:11)
[2016-05-07 06:54] VITALS: BP 107/67
[2016-05-07] MEDS: DIVALPROEX SODIUM 500 MG ER TABLET PO SCH ×2 (08:09→20:27)
[2016-05-07] MEDS: FluPHENAZine HCL 10 MG TABLET PO SCH ×2 (08:09→16:07)
[2016-05-07] MEDS: BENZTROPINE MESYLATE 1 MG TABLET PO SCH ×2 (08:10→16:07)
[2016-05-07] MEDS: OLANZapine 5 MG RAPDIS TABLET PO SCH (08:10)
[2016-05-07] MEDS: TERBINAFINE HCL 1% 30 GM CREAM TP SCH ×2 (08:11→16:07)
[2016-05-07 08:25] VITALS: BP 112/79
[2016-05-07] MEDS: LORazepam 2 MG TABLET PO PRN (08:25)
[2016-05-07 16:00] VITALS: BP 109/62
[2016-05-07] MEDS: OLANZapine 10 MG RAPDIS TABLET PO SCH (16:07)
[2016-05-07] MEDS: ZOLPIDEM TARTRATE 10 MG TABLET PO PRN (21:40)
[2016-05-08 06:47] VITALS: BP 108/73
[2016-05-08 08:08] VITALS: BP 108/67
[2016-05-08] MEDS: BENZTROPINE MESYLATE 1 MG TABLET PO SCH ×2 (08:41→16:21)
[2016-05-08] MEDS: FluPHENAZine HCL 10 MG TABLET PO SCH ×2 (08:41→16:21)
[2016-05-08] MEDS: DIVALPROEX SODIUM 500 MG ER TABLET PO SCH ×2 (08:42→20:30)
[2016-05-08] MEDS: OLANZapine 10 MG RAPDIS TABLET PO SCH ×2 (08:42→16:21)
[2016-05-08] MEDS: TERBINAFINE HCL 1% 30 GM CREAM TP SCH ×2 (08:43→16:22)
[2016-05-08 16:00] VITALS: BP 107/71
[2016-05-08] MEDS: ZOLPIDEM TARTRATE 10 MG TABLET PO PRN (22:23)
[2016-05-09 06:42] VITALS: BP 109/68
[2016-05-09 08:08] VITALS: BP 104/61
[2016-05-09] MEDS: FluPHENAZine HCL 10 MG TABLET PO SCH ×2 (09:39→16:33)
[2016-05-09] MEDS: OLANZapine 10 MG RAPDIS TABLET PO SCH ×2 (09:39→16:33)
[2016-05-09] MEDS: TERBINAFINE HCL 1% 30 GM CREAM TP SCH ×2 (09:39→16:34)
[2016-05-09] MEDS: BENZTROPINE MESYLATE 1 MG TABLET PO SCH ×2 (09:39→16:33)
[2016-05-09] MEDS: DIVALPROEX SODIUM 500 MG ER TABLET PO SCH ×2 (09:39→20:34)
[2016-05-09 16:00] VITALS: BP 108/73
[2016-05-09] MEDS: ZOLPIDEM TARTRATE 10 MG TABLET PO PRN (20:34)
[2016-05-10 06:54] VITALS: BP 102/66
[2016-05-10 08:08] VITALS: BP 107/72
[2016-05-10] MEDS: BENZTROPINE MESYLATE 1 MG TABLET PO SCH ×2 (10:09→16:26)
[2016-05-10] MEDS: DIVALPROEX SODIUM 500 MG ER TABLET PO SCH ×2 (10:09→20:31)
[2016-05-10] MEDS: TERBINAFINE HCL 1% 30 GM CREAM TP SCH ×2 (10:09→16:26)
[2016-05-10] MEDS: OLANZapine 10 MG RAPDIS TABLET PO SCH ×2 (10:09→16:26)
[2016-05-10] MEDS: FluPHENAZine HCL 10 MG TABLET PO SCH ×2 (10:09→16:26)
[2016-05-10 16:06] VITALS: BP 111/68
[2016-05-10] MEDS: ZOLPIDEM TARTRATE 10 MG TABLET PO PRN (21:47)
[2016-05-10] MEDS: TraZODone HCL 100 MG TABLET PO SCH (22:49)
[2016-05-11 06:38] VITALS: BP 108/62
[2016-05-11 08:07] VITALS: BP 110/70
[2016-05-11] MEDS: BENZTROPINE MESYLATE 1 MG TABLET PO SCH ×2 (09:20→17:13)
[2016-05-11] MEDS: FluPHENAZine HCL 10 MG TABLET PO SCH ×2 (09:20→17:13)
[2016-05-11] MEDS: DIVALPROEX SODIUM 500 MG ER TABLET PO SCH ×2 (09:20→20:40)
[2016-05-11] MEDS: TERBINAFINE HCL 1% 30 GM CREAM TP SCH ×2 (09:21→17:14)
[2016-05-11] MEDS: OLANZapine 10 MG RAPDIS TABLET PO SCH ×2 (09:21→17:14)
[2016-05-11 16:06] VITALS: BP 112/68
[2016-05-11] MEDS: LORazepam 2 MG TABLET PO PRN (17:14)
[2016-05-11] MEDS: QUEtiapine FUMARATE 100 MG TABLET PO PRN (18:23)
[2016-05-11] MEDS: TraZODone HCL 100 MG TABLET PO SCH (20:40)
[2016-05-11] MEDS: ZOLPIDEM TARTRATE 10 MG TABLET PO PRN (20:40)
[2016-05-11] MEDS ORDERED: TraZODone HCL 100 MG TABLET PO SCH (21:00)
[2016-05-12 06:16] VITALS: BP 106/65
[2016-05-12 08:08] VITALS: BP 113/55
[2016-05-12] MEDS: BENZTROPINE MESYLATE 1 MG TABLET PO SCH ×2 (08:22→17:02)
[2016-05-12] MEDS: DIVALPROEX SODIUM 500 MG ER TABLET PO SCH ×2 (08:22→20:34)
[2016-05-12] MEDS: TERBINAFINE HCL 1% 30 GM CREAM TP SCH ×2 (08:22→17:02)
[2016-05-12] MEDS: OLANZapine 10 MG RAPDIS TABLET PO SCH ×2 (08:22→17:02)
[2016-05-12] MEDS: FluPHENAZine HCL 10 MG TABLET PO SCH ×2 (08:22→17:02)
[2016-05-12 16:00] VITALS: BP 102/61
[2016-05-12] MEDS: TraZODone HCL 100 MG TABLET PO SCH (20:34)
[2016-05-13 06:43] VITALS: BP 115/75
[2016-05-13 08:08] VITALS: BP 113/80
[2016-05-13] MEDS: TERBINAFINE HCL 1% 30 GM CREAM TP SCH ×2 (09:16→16:21)
[2016-05-13] MEDS: FluPHENAZine HCL 10 MG TABLET PO SCH ×2 (09:16→16:18)
[2016-05-13] MEDS: OLANZapine 10 MG RAPDIS TABLET PO SCH ×2 (09:16→16:19)
[2016-05-13] MEDS: DIVALPROEX SODIUM 500 MG ER TABLET PO SCH ×2 (09:16→20:44)
[2016-05-13] MEDS: BENZTROPINE MESYLATE 1 MG TABLET PO SCH ×2 (09:17→16:19)
[2016-05-13 16:00] VITALS: BP 118/76
[2016-05-13] MEDS: TraZODone HCL 100 MG TABLET PO SCH (20:44)
[2016-05-14 06:44] VITALS: BP 104/71
[2016-05-14 08:06] VITALS: BP 118/81
[2016-05-14] MEDS: OLANZapine 10 MG RAPDIS TABLET PO SCH ×2 (08:41→16:48)
[2016-05-14] MEDS: FluPHENAZine HCL 10 MG TABLET PO SCH ×2 (08:41→16:48)
[2016-05-14] MEDS: TRIHEXYPHENIDYL HCL 5 MG TABLET PO SCH ×2 (08:41→16:48)
[2016-05-14] MEDS: DIVALPROEX SODIUM 500 MG ER TABLET PO SCH ×2 (08:41→20:25)
[2016-05-14] MEDS: TERBINAFINE HCL 1% 30 GM CREAM TP SCH ×2 (08:43→16:49)
[2016-05-14 16:42] VITALS: BP 119/82
[2016-05-14] MEDS: TraZODone HCL 100 MG TABLET PO SCH (20:25)
[2016-05-14] MEDS: LORazepam 2 MG TABLET PO PRN (20:26)
[2016-05-15 06:10] VITALS: BP 106/62
[2016-05-15 08:47] VITALS: BP 112/69
[2016-05-15] MEDS: DIVALPROEX SODIUM 500 MG ER TABLET PO SCH ×2 (08:59→20:31)
[2016-05-15] MEDS: OLANZapine 10 MG RAPDIS TABLET PO SCH ×2 (09:00→16:20)
[2016-05-15] MEDS: TERBINAFINE HCL 1% 30 GM CREAM TP SCH ×2 (09:00→16:20)
[2016-05-15] MEDS: TRIHEXYPHENIDYL HCL 5 MG TABLET PO SCH ×2 (09:00→16:20)
[2016-05-15] MEDS: FluPHENAZine HCL 10 MG TABLET PO SCH ×2 (09:00→16:20)
[2016-05-15 16:00] VITALS: BP 110/75
[2016-05-15] MEDS: LORazepam 2 MG TABLET PO PRN (20:31)
[2016-05-15] MEDS: TraZODone HCL 100 MG TABLET PO SCH (20:31)
[2016-05-15] MEDS: ZOLPIDEM TARTRATE 10 MG TABLET PO PRN (21:21)
[2016-05-16 06:17] VITALS: BP 118/80
[2016-05-16 08:42] VITALS: BP 112/61
[2016-05-16] MEDS: OLANZapine 10 MG RAPDIS TABLET PO SCH ×2 (09:45→17:11)
[2016-05-16] MEDS: DIVALPROEX SODIUM 500 MG ER TABLET PO SCH ×2 (09:45→20:23)
[2016-05-16] MEDS: TRIHEXYPHENIDYL HCL 5 MG TABLET PO SCH ×2 (09:46→17:11)
[2016-05-16] MEDS: FluPHENAZine HCL 10 MG TABLET PO SCH ×2 (09:46→17:11)
[2016-05-16] MEDS: TERBINAFINE HCL 1% 30 GM CREAM TP SCH ×2 (09:46→17:11)
[2016-05-16 16:00] VITALS: BP 104/72
[2016-05-16] MEDS: TraZODone HCL 100 MG TABLET PO SCH (20:23)
[2016-05-17 06:50] VITALS: BP 105/60
[2016-05-17 08:08] VITALS: BP 111/60
[2016-05-17] MEDS: TRIHEXYPHENIDYL HCL 5 MG TABLET PO SCH ×2 (09:23→16:18)
[2016-05-17] MEDS: TERBINAFINE HCL 1% 30 GM CREAM TP SCH ×2 (09:24→16:19)
[2016-05-17] MEDS: DIVALPROEX SODIUM 500 MG ER TABLET PO SCH ×2 (09:24→20:33)
[2016-05-17] MEDS: FluPHENAZine HCL 10 MG TABLET PO SCH ×2 (09:24→16:18)
[2016-05-17] MEDS: OLANZapine 10 MG RAPDIS TABLET PO SCH ×2 (09:24→16:18)
[2016-05-17 16:19] VITALS: BP 115/71
[2016-05-17] MEDS: TraZODone HCL 100 MG TABLET PO SCH (20:33)
[2016-05-17] MEDS: ZOLPIDEM TARTRATE 10 MG TABLET PO PRN (20:50)
[2016-05-18 08:23] VITALS: BP 106/67
[2016-05-18] MEDS: FluPHENAZine HCL 10 MG TABLET PO SCH ×2 (08:50→16:58)
[2016-05-18] MEDS: OLANZapine 10 MG RAPDIS TABLET PO SCH ×2 (08:50→16:58)
[2016-05-18] MEDS: TERBINAFINE HCL 1% 30 GM CREAM TP SCH ×2 (08:50→16:59)
[2016-05-18] MEDS: DIVALPROEX SODIUM 500 MG ER TABLET PO SCH ×2 (08:50→20:50)
[2016-05-18] MEDS: TRIHEXYPHENIDYL HCL 5 MG TABLET PO SCH ×2 (08:50→16:58)
[2016-05-18 16:12] VITALS: BP 112/70
[2016-05-18] MEDS: TraZODone HCL 100 MG TABLET PO SCH (20:50)
[2016-05-18] MEDS: ZOLPIDEM TARTRATE 10 MG TABLET PO PRN (21:21)
[2016-05-19 08:19] VITALS: BP 106/66
[2016-05-19 08:50] LABS: EOSINOPHILS % (AUTO) 9.7 % (1.0-6.0); HEMATOCRIT 44.3 % (41-53); HEMOGLOBIN 14.9 g/dL (13.5-17.5); LYMPHOCYTES % (AUTO) 39.6 % (22.0-44.0); MEAN CORPUSCULAR HEMOGLOBIN 30.7 pg (26.0-34.0); MEAN CORPUSCULAR HGB CONC 33.5 G/dL (31.0-37.0); MEAN CORPUSCULAR VOLUME 92 fL (80-100); MONOCYTES # (AUTO) 0.6 K/uL (0.1-1.0); MONOCYTES % (AUTO) 7.4 % (2.0-9.0); NEUTROPHILS # (AUTO) 3.3 K/uL (1.8-7.7); NEUTROPHILS % (AUTO) 42.3 % (40.0-70.0); PLATELET COUNT (AUTO) 162 K/uL (150-450); RED BLOOD CELL COUNT(AUTO) 4.84 MIL/uL (4.50-5.90); RED CELL DISTRIBUTION WIDTH 14.1 % (11.5-14.5); WHITE BLOOD COUNT (AUTO) 7.7 K/uL (4.5-11.0)
[2016-05-19 09:07] LABS: AMYLASE 41 U/L (25-115); VALPROIC ACID 78 mcg/mL (50-100)
[2016-05-19] MEDS: FluPHENAZine HCL 10 MG TABLET PO SCH ×2 (09:32→16:02)
[2016-05-19] MEDS: TRIHEXYPHENIDYL HCL 5 MG TABLET PO SCH ×2 (09:32→16:03)
[2016-05-19] MEDS: TERBINAFINE HCL 1% 30 GM CREAM TP SCH ×2 (09:32→16:32)
[2016-05-19] MEDS: DIVALPROEX SODIUM 500 MG ER TABLET PO SCH ×2 (09:32→20:20)
[2016-05-19] MEDS: OLANZapine 10 MG RAPDIS TABLET PO SCH ×2 (09:32→16:02)
[2016-05-19 16:09] VITALS: BP 109/74
[2016-05-19] MEDS: TraZODone HCL 100 MG TABLET PO SCH (20:20)
[2016-05-19] MEDS: ZOLPIDEM TARTRATE 10 MG TABLET PO PRN (20:57)
[2016-05-20 06:34] VITALS: BP 115/73
[2016-05-20 08:08] VITALS: BP 107/68
[2016-05-20] MEDS: DIVALPROEX SODIUM 500 MG ER TABLET PO SCH ×2 (09:50→20:41)
[2016-05-20] MEDS: TRIHEXYPHENIDYL HCL 5 MG TABLET PO SCH ×2 (09:50→16:49)
[2016-05-20] MEDS: FluPHENAZine HCL 10 MG TABLET PO SCH ×2 (09:50→16:49)
[2016-05-20] MEDS: OLANZapine 10 MG RAPDIS TABLET PO SCH ×2 (09:50→16:49)
[2016-05-20] MEDS: TERBINAFINE HCL 1% 30 GM CREAM TP SCH ×2 (09:50→17:14)
[2016-05-20 16:00] VITALS: BP 111/70
[2016-05-20] MEDS: LORazepam 2 MG TABLET PO PRN (16:50)
[2016-05-20] MEDS: QUEtiapine FUMARATE 100 MG TABLET PO PRN (19:50)
[2016-05-20] MEDS: ZOLPIDEM TARTRATE 10 MG TABLET PO PRN (20:41)
[2016-05-20] MEDS: TraZODone HCL 100 MG TABLET PO SCH (20:41)
[2016-05-21 06:59] VITALS: BP 106/74
[2016-05-21 08:08] VITALS: BP 104/68
[2016-05-21] MEDS: FluPHENAZine HCL 10 MG TABLET PO SCH ×2 (09:29→17:21)
[2016-05-21] MEDS: OLANZapine 10 MG RAPDIS TABLET PO SCH ×2 (09:29→17:21)
[2016-05-21] MEDS: DIVALPROEX SODIUM 500 MG ER TABLET PO SCH ×2 (09:29→21:16)
[2016-05-21] MEDS: TERBINAFINE HCL 1% 30 GM CREAM TP SCH ×2 (09:30→17:21)
[2016-05-21] MEDS: TRIHEXYPHENIDYL HCL 5 MG TABLET PO SCH ×2 (09:30→17:21)
[2016-05-21 16:00] VITALS: BP 114/74
[2016-05-21] MEDS: LORazepam 2 MG TABLET PO PRN (17:21)
[2016-05-21] MEDS: TraZODone HCL 100 MG TABLET PO SCH (21:16)
[2016-05-21] MEDS: ZOLPIDEM TARTRATE 10 MG TABLET PO PRN (21:16)
[2016-05-22 06:44] VITALS: BP 108/63
[2016-05-22 08:08] VITALS: BP 106/65
[2016-05-22] MEDS: DIVALPROEX SODIUM 500 MG ER TABLET PO SCH ×2 (08:41→20:39)
[2016-05-22] MEDS: TERBINAFINE HCL 1% 30 GM CREAM TP SCH ×2 (08:41→16:29)
[2016-05-22] MEDS: TRIHEXYPHENIDYL HCL 5 MG TABLET PO SCH ×2 (08:41→16:28)
[2016-05-22] MEDS: OLANZapine 10 MG RAPDIS TABLET PO SCH ×2 (08:41→16:28)
[2016-05-22] MEDS: FluPHENAZine HCL 10 MG TABLET PO SCH ×2 (08:41→16:28)
[2016-05-22 16:11] VITALS: BP 100/63
[2016-05-22] MEDS: TraZODone HCL 100 MG TABLET PO SCH (20:39)
[2016-05-22] MEDS: ZOLPIDEM TARTRATE 10 MG TABLET PO PRN (23:42)
[2016-05-23 01:32] VITALS: BP 121/93
[2016-05-23 08:21] VITALS: BP 108/66
[2016-05-23] MEDS: FluPHENAZine HCL 10 MG TABLET PO SCH ×2 (09:23→17:08)
[2016-05-23] MEDS: TRIHEXYPHENIDYL HCL 5 MG TABLET PO SCH ×2 (09:23→17:08)
[2016-05-23] MEDS: TERBINAFINE HCL 1% 30 GM CREAM TP SCH ×2 (09:23→17:09)
[2016-05-23] MEDS: DIVALPROEX SODIUM 500 MG ER TABLET PO SCH ×2 (09:23→20:09)
[2016-05-23] MEDS: OLANZapine 10 MG RAPDIS TABLET PO SCH ×2 (09:23→17:09)
[2016-05-23 16:00] VITALS: BP 112/69
[2016-05-23] MEDS: ZOLPIDEM TARTRATE 10 MG TABLET PO PRN (20:09)
[2016-05-23] MEDS: TraZODone HCL 100 MG TABLET PO SCH (20:09)
[2016-05-24 07:20] VITALS: BP 108/74
[2016-05-24 08:08] VITALS: BP 105/73
[2016-05-24] MEDS: FluPHENAZine HCL 10 MG TABLET PO SCH ×2 (09:43→16:25)
[2016-05-24] MEDS: OLANZapine 10 MG RAPDIS TABLET PO SCH ×2 (09:43→16:25)
[2016-05-24] MEDS: TERBINAFINE HCL 1% 30 GM CREAM TP SCH ×2 (09:43→16:25)
[2016-05-24] MEDS: DIVALPROEX SODIUM 500 MG ER TABLET PO SCH ×2 (09:43→20:44)
[2016-05-24] MEDS: TRIHEXYPHENIDYL HCL 5 MG TABLET PO SCH ×2 (09:44→16:25)
[2016-05-24 16:00] VITALS: BP 120/76
[2016-05-24] MEDS: LORazepam 2 MG TABLET PO PRN (16:25)
[2016-05-24] MEDS: TraZODone HCL 100 MG TABLET PO SCH (20:44)
[2016-05-25 06:58] VITALS: BP 105/69
[2016-05-25 08:08] VITALS: BP 100/67
[2016-05-25] MEDS: FluPHENAZine HCL 10 MG TABLET PO SCH ×2 (09:51→16:45)
[2016-05-25] MEDS: TRIHEXYPHENIDYL HCL 5 MG TABLET PO SCH ×2 (09:51→16:45)
[2016-05-25] MEDS: TERBINAFINE HCL 1% 30 GM CREAM TP SCH ×2 (09:51→16:45)
[2016-05-25] MEDS: OLANZapine 10 MG RAPDIS TABLET PO SCH ×2 (09:51→16:45)
[2016-05-25] MEDS: DIVALPROEX SODIUM 500 MG ER TABLET PO SCH ×2 (09:51→20:10)
[2016-05-25 16:15] VITALS: BP 101/64
[2016-05-25 19:15] VITALS: BP 131/81
[2016-05-25] MEDS: TraZODone HCL 100 MG TABLET PO SCH (20:10)
[2016-05-26] MEDS: TERBINAFINE HCL 1% 30 GM CREAM TP SCH ×2 (09:00→16:29)
[2016-05-26 09:07] VITALS: BP 123/95
[2016-05-26] MEDS: DIVALPROEX SODIUM 500 MG ER TABLET PO SCH ×2 (09:11→20:20)
[2016-05-26] MEDS: OLANZapine 10 MG RAPDIS TABLET PO SCH ×2 (09:12→16:29)
[2016-05-26] MEDS: FluPHENAZine HCL 10 MG TABLET PO SCH ×2 (11:30→16:29)
[2016-05-26] MEDS: TRIHEXYPHENIDYL HCL 5 MG TABLET PO SCH ×2 (11:30→16:29)
[2016-05-26 17:09] VITALS: BP 123/87
[2016-05-26] MEDS: TraZODone HCL 100 MG TABLET PO SCH (20:19)
[2016-05-27 08:00] VITALS: BP 117/85
[2016-05-27] MEDS: OLANZapine 10 MG RAPDIS TABLET PO SCH ×2 (09:01→16:03)
[2016-05-27] MEDS: DIVALPROEX SODIUM 500 MG ER TABLET PO SCH ×2 (09:01→20:05)
[2016-05-27] MEDS: TRIHEXYPHENIDYL HCL 5 MG TABLET PO SCH ×2 (09:01→16:03)
[2016-05-27] MEDS: FluPHENAZine HCL 10 MG TABLET PO SCH ×2 (09:01→16:03)
[2016-05-27] MEDS: TERBINAFINE HCL 1% 30 GM CREAM TP SCH ×2 (12:07→16:24)
[2016-05-27 16:00] VITALS: BP 118/77
[2016-05-27] MEDS: TraZODone HCL 100 MG TABLET PO SCH (20:06)
[2016-05-27] MEDS: ZOLPIDEM TARTRATE 10 MG TABLET PO PRN (21:00)
[2016-05-28] MEDS: DIVALPROEX SODIUM 500 MG ER TABLET PO SCH ×2 (08:13→20:05)
[2016-05-28] MEDS: TRIHEXYPHENIDYL HCL 5 MG TABLET PO SCH ×2 (08:13→17:47)
[2016-05-28] MEDS: OLANZapine 10 MG RAPDIS TABLET PO SCH ×2 (08:14→17:46)
[2016-05-28] MEDS: FluPHENAZine HCL 10 MG TABLET PO SCH ×2 (08:14→17:47)
[2016-05-28 08:57] VITALS: BP 124/77
[2016-05-28] MEDS: TERBINAFINE HCL 1% 30 GM CREAM TP SCH ×2 (09:00→17:48)
[2016-05-28 16:38] VITALS: BP 131/98
[2016-05-28] MEDS: TraZODone HCL 100 MG TABLET PO SCH (20:05)
[2016-05-28] MEDS: LORazepam 2 MG TABLET PO PRN (20:05)
[2016-05-29] MEDS: DIVALPROEX SODIUM 500 MG ER TABLET PO SCH ×2 (10:11→21:18)
[2016-05-29] MEDS: OLANZapine 10 MG RAPDIS TABLET PO SCH ×2 (10:15→15:59)
[2016-05-29] MEDS: TRIHEXYPHENIDYL HCL 5 MG TABLET PO SCH ×2 (10:15→16:00)
[2016-05-29] MEDS: FluPHENAZine HCL 10 MG TABLET PO SCH ×2 (10:15→15:59)
[2016-05-29] MEDS: TERBINAFINE HCL 1% 30 GM CREAM TP SCH ×2 (10:16→16:00)
[2016-05-29 10:27] VITALS: BP 131/87
[2016-05-29 16:30] VITALS: BP 121/89
[2016-05-29] MEDS: TraZODone HCL 100 MG TABLET PO SCH (21:18)
[2016-05-30 10:40] VITALS: BP 128/78
[2016-05-30] MEDS: TRIHEXYPHENIDYL HCL 5 MG TABLET PO SCH ×2 (10:51→16:33)
[2016-05-30] MEDS: DIVALPROEX SODIUM 500 MG ER TABLET PO SCH ×2 (10:51→20:34)
[2016-05-30] MEDS: FluPHENAZine HCL 10 MG TABLET PO SCH ×2 (10:51→16:33)
[2016-05-30] MEDS: OLANZapine 10 MG RAPDIS TABLET PO SCH ×2 (10:52→16:33)
[2016-05-30] MEDS: TERBINAFINE HCL 1% 30 GM CREAM TP SCH ×2 (10:52→16:33)
[2016-05-30] MEDS: TraZODone HCL 100 MG TABLET PO SCH (20:33)
[2016-05-30] MEDS: ZOLPIDEM TARTRATE 10 MG TABLET PO PRN (21:12)
[2016-05-30 21:37] VITALS: BP 130/98
[2016-05-31 08:02] VITALS: BP 106/74
[2016-05-31] MEDS: TERBINAFINE HCL 1% 30 GM CREAM TP SCH ×2 (09:00→18:00)
[2016-05-31] MEDS: OLANZapine 10 MG RAPDIS TABLET PO SCH ×2 (10:35→18:00)
[2016-05-31] MEDS: TRIHEXYPHENIDYL HCL 5 MG TABLET PO SCH ×2 (10:35→18:00)
[2016-05-31] MEDS: DIVALPROEX SODIUM 500 MG ER TABLET PO SCH ×2 (10:35→20:06)
[2016-05-31] MEDS: FluPHENAZine HCL 10 MG TABLET PO SCH ×2 (10:35→18:00)
[2016-05-31 16:00] VITALS: BP 123/78
[2016-05-31] MEDS: LORazepam 2 MG TABLET PO PRN (18:13)
[2016-05-31] MEDS: TraZODone HCL 100 MG TABLET PO SCH (20:07)
[2016-06-01] MEDS: FluPHENAZine HCL 10 MG TABLET PO SCH ×2 (09:16→16:37)
[2016-06-01] MEDS: DIVALPROEX SODIUM 500 MG ER TABLET PO SCH ×2 (09:17→20:06)
[2016-06-01] MEDS: TRIHEXYPHENIDYL HCL 5 MG TABLET PO SCH ×2 (09:17→16:37)
[2016-06-01] MEDS: OLANZapine 10 MG RAPDIS TABLET PO SCH ×2 (09:17→16:37)
[2016-06-01 09:35] VITALS: BP 119/74
[2016-06-01] MEDS: TERBINAFINE HCL 1% 30 GM CREAM TP SCH ×2 (11:58→16:38)
[2016-06-01 17:14] VITALS: BP 127/90
[2016-06-01] MEDS: TraZODone HCL 100 MG TABLET PO SCH (20:06)
[2016-06-02 08:13] VITALS: BP 115/77
[2016-06-02] MEDS: TRIHEXYPHENIDYL HCL 5 MG TABLET PO SCH ×2 (10:53→16:23)
[2016-06-02] MEDS: OLANZapine 10 MG RAPDIS TABLET PO SCH ×2 (10:54→16:23)
[2016-06-02] MEDS: FluPHENAZine HCL 10 MG TABLET PO SCH ×2 (10:54→16:23)
[2016-06-02] MEDS: DIVALPROEX SODIUM 500 MG ER TABLET PO SCH ×2 (10:54→20:27)
[2016-06-02] MEDS: TERBINAFINE HCL 1% 30 GM CREAM TP SCH ×2 (10:54→17:26)
[2016-06-02] MEDS: TraZODone HCL 100 MG TABLET PO SCH (20:27)
[2016-06-02 21:00] VITALS: BP 124/73
[2016-06-03] MEDS: ZOLPIDEM TARTRATE 10 MG TABLET PO PRN (00:20)
[2016-06-03 01:40] VITALS: BP 147/96
[2016-06-03 08:10] VITALS: BP 110/83
[2016-06-03] MEDS: TERBINAFINE HCL 1% 30 GM CREAM TP SCH ×2 (09:00→16:59)
[2016-06-03] MEDS: OLANZapine 10 MG RAPDIS TABLET PO SCH ×2 (09:15→16:12)
[2016-06-03] MEDS: TRIHEXYPHENIDYL HCL 5 MG TABLET PO SCH ×2 (09:15→16:12)
[2016-06-03] MEDS: FluPHENAZine HCL 10 MG TABLET PO SCH ×2 (09:15→16:12)
[2016-06-03] MEDS: DIVALPROEX SODIUM 500 MG ER TABLET PO SCH ×2 (09:15→20:05)
[2016-06-03 17:13] VITALS: BP 134/63
[2016-06-03] MEDS: TraZODone HCL 100 MG TABLET PO SCH (20:05)
[2016-06-04 08:20] VITALS: BP 99/69
[2016-06-04] MEDS: TERBINAFINE HCL 1% 30 GM CREAM TP SCH ×2 (09:00→16:22)
[2016-06-04] MEDS: OLANZapine 10 MG RAPDIS TABLET PO SCH ×2 (09:18→16:22)
[2016-06-04] MEDS: FluPHENAZine HCL 10 MG TABLET PO SCH ×2 (09:18→16:22)
[2016-06-04] MEDS: DIVALPROEX SODIUM 500 MG ER TABLET PO SCH ×2 (09:18→20:11)
[2016-06-04] MEDS: TRIHEXYPHENIDYL HCL 5 MG TABLET PO SCH ×2 (09:18→16:22)
[2016-06-04] MEDS: LORazepam 2 MG TABLET PO PRN (13:42)
[2016-06-04 16:53] VITALS: BP 114/73
[2016-06-04] MEDS: TraZODone HCL 100 MG TABLET PO SCH (20:11)
[2016-06-05 08:45] VITALS: BP 107/74
[2016-06-05] MEDS: DIVALPROEX SODIUM 500 MG ER TABLET PO SCH ×2 (09:02→20:11)
[2016-06-05] MEDS: FluPHENAZine HCL 10 MG TABLET PO SCH ×2 (09:02→16:07)
[2016-06-05] MEDS: TRIHEXYPHENIDYL HCL 5 MG TABLET PO SCH ×2 (09:02→16:07)
[2016-06-05] MEDS: OLANZapine 10 MG RAPDIS TABLET PO SCH ×2 (09:03→16:07)
[2016-06-05] MEDS: TERBINAFINE HCL 1% 30 GM CREAM TP SCH ×2 (09:33→16:07)
[2016-06-05 16:38] VITALS: BP 112/82
[2016-06-05 16:39] VITALS: BP 131/78
[2016-06-05] MEDS: LORazepam 2 MG TABLET PO PRN (18:53)
[2016-06-05] MEDS: TraZODone HCL 100 MG TABLET PO SCH (20:11)
[2016-06-06 08:00] VITALS: BP 122/77
[2016-06-06] MEDS: OLANZapine 10 MG RAPDIS TABLET PO SCH ×2 (08:46→16:03)
[2016-06-06] MEDS: DIVALPROEX SODIUM 500 MG ER TABLET PO SCH ×2 (08:46→20:07)
[2016-06-06] MEDS: FluPHENAZine HCL 10 MG TABLET PO SCH ×2 (08:46→16:03)
[2016-06-06] MEDS: TRIHEXYPHENIDYL HCL 5 MG TABLET PO SCH ×2 (08:46→16:04)
[2016-06-06] MEDS: TERBINAFINE HCL 1% 30 GM CREAM TP SCH ×2 (10:17→16:04)
[2016-06-06 16:30] VITALS: BP 120/89
[2016-06-06] MEDS: ARIPiprazole 5 MG TABLET PO SCH (20:07)
[2016-06-06] MEDS: TraZODone HCL 100 MG TABLET PO SCH (20:07)
[2016-06-07 09:00] VITALS: BP 102/74
[2016-06-07] MEDS: DIVALPROEX SODIUM 500 MG ER TABLET PO SCH ×2 (09:02→21:13)
[2016-06-07] MEDS: OLANZapine 10 MG RAPDIS TABLET PO SCH ×2 (09:02→17:30)
[2016-06-07] MEDS: ARIPiprazole 5 MG TABLET PO SCH ×2 (09:02→21:13)
[2016-06-07] MEDS: TERBINAFINE HCL 1% 30 GM CREAM TP SCH ×2 (09:03→17:31)
[2016-06-07] MEDS: FluPHENAZine HCL 10 MG TABLET PO SCH ×2 (09:03→17:30)
[2016-06-07] MEDS: TRIHEXYPHENIDYL HCL 5 MG TABLET PO SCH ×2 (09:58→17:31)
[2016-06-07 18:13] VITALS: BP 142/97
[2016-06-07] MEDS: LORazepam 2 MG TABLET PO PRN (19:30)
[2016-06-07] MEDS: TraZODone HCL 100 MG TABLET PO SCH (21:13)
[2016-06-08 08:06] VITALS: BP 106/74
[2016-06-08] MEDS: TERBINAFINE HCL 1% 30 GM CREAM TP SCH ×2 (09:00→16:42)
[2016-06-08] MEDS: TRIHEXYPHENIDYL HCL 5 MG TABLET PO SCH ×2 (09:52→16:41)
[2016-06-08] MEDS: ARIPiprazole 5 MG TABLET PO SCH ×2 (09:52→20:09)
[2016-06-08] MEDS: OLANZapine 10 MG RAPDIS TABLET PO SCH ×2 (09:53→16:41)
[2016-06-08] MEDS: DIVALPROEX SODIUM 500 MG ER TABLET PO SCH ×2 (09:53→20:09)
[2016-06-08] MEDS: FluPHENAZine HCL 10 MG TABLET PO SCH ×2 (09:54→16:41)
[2016-06-08 17:46] VITALS: BP 137/93
[2016-06-08] MEDS: TraZODone HCL 100 MG TABLET PO SCH (20:09)
[2016-06-08] MEDS: ZOLPIDEM TARTRATE 10 MG TABLET PO PRN (21:37)
[2016-06-09 08:00] VITALS: BP 107/65
[2016-06-09 08:25] LABS: BASOPHILS % (AUTO) 0.6 % (0.0-2.0); EOSINOPHILS % (AUTO) 4.9 % (1.0-6.0); HEMATOCRIT 44.1 % (41-53); HEMOGLOBIN 14.7 g/dL (13.5-17.5); LYMPHOCYTES # (AUTO) 2.6 K/uL (1.0-4.8); LYMPHOCYTES % (AUTO) 39.7 % (22.0-44.0); MEAN CORPUSCULAR HEMOGLOBIN 30.2 pg (26.0-34.0); MEAN CORPUSCULAR HGB CONC 33.3 G/dL (31.0-37.0); MEAN CORPUSCULAR VOLUME 91 fL (80-100); MONOCYTES # (AUTO) 0.4 K/uL (0.1-1.0); MONOCYTES % (AUTO) 5.9 % (2.0-9.0); NEUTROPHILS # (AUTO) 3.2 K/uL (1.8-7.7); NEUTROPHILS % (AUTO) 48.9 % (40.0-70.0); PLATELET COUNT (AUTO) 205 K/uL (150-450); RED BLOOD CELL COUNT(AUTO) 4.85 MIL/uL (4.50-5.90); WHITE BLOOD COUNT (AUTO) 6.5 K/uL (4.5-11.0)
[2016-06-09 08:53] LABS: ALANINE AMINOTRANSFERASE 23 U/L (12-78); ALBUMIN 3.5 g/dL (3.4-5.0); ANION GAP 9 mmol/L (8-16); ASPARTATE AMINOTRANSFERASE 13 U/L (15-37); BILIRUBIN,TOTAL 0.3 mg/dL (0.1-1.0); CALCIUM, TOTAL 8.2 mg/dL (8.8-10.5); CARBON DIOXIDE 27 mmol/L (22-29); CHLORIDE 104 mmol/L (98-107); GLOMERULAR FILTR. RATE CALC > 60 mL/min (>60); PHOSPHORUS 4.2 mg/dL (2.5-4.9); POTASSIUM 4.7 mmol/L (3.5-5.1); SODIUM SERUM 140 mmol/L (136-145); TOTAL PROTEIN, SERUM 6.4 g/dL (6.4-8.2); UREA NITROGEN, BLOOD 10 mg/dL (7-18)
[2016-06-09] MEDS ORDERED: FluPHENAZine DECANOATE 25 MG/ML IM SCH (09:00)
[2016-06-09] MEDS: TERBINAFINE HCL 1% 30 GM CREAM TP SCH ×3 (09:00→17:50)
[2016-06-09] MEDS: FluPHENAZine HCL 10 MG TABLET PO SCH ×2 (09:35→17:25)
[2016-06-09] MEDS: TRIHEXYPHENIDYL HCL 5 MG TABLET PO SCH ×2 (09:35→17:25)
[2016-06-09] MEDS: OLANZapine 10 MG RAPDIS TABLET PO SCH ×2 (09:35→17:25)
[2016-06-09] MEDS: DIVALPROEX SODIUM 500 MG ER TABLET PO SCH ×2 (09:36→20:42)
[2016-06-09 19:11] VITALS: BP 128/80
[2016-06-09] MEDS: TraZODone HCL 100 MG TABLET PO SCH (20:41)
[2016-06-09] MEDS: ZOLPIDEM TARTRATE 10 MG TABLET PO PRN (20:41)
[2016-06-10 08:08] VITALS: BP 109/78
[2016-06-10] MEDS: DIVALPROEX SODIUM 500 MG ER TABLET PO SCH ×2 (09:06→20:27)
[2016-06-10] MEDS: TRIHEXYPHENIDYL HCL 5 MG TABLET PO SCH ×2 (09:06→16:25)
[2016-06-10] MEDS: OLANZapine 10 MG RAPDIS TABLET PO SCH ×2 (09:06→16:25)
[2016-06-10] MEDS: CHOLECALCIFEROL (VIT D3) 1,000 UNITS TABLET PO SCH (09:07)
[2016-06-10] MEDS: TERBINAFINE HCL 1% 30 GM CREAM TP SCH ×2 (09:08→16:27)
[2016-06-10] MEDS: LORazepam 2 MG TABLET PO PRN (16:25)
[2016-06-10 16:30] VITALS: BP 132/97
[2016-06-10] MEDS: TraZODone HCL 100 MG TABLET PO SCH (20:27)
[2016-06-11 08:04] VITALS: BP 103/72
[2016-06-11] MEDS: DIVALPROEX SODIUM 500 MG ER TABLET PO SCH ×2 (09:25→20:16)
[2016-06-11] MEDS: CHOLECALCIFEROL (VIT D3) 1,000 UNITS TABLET PO SCH (09:25)
[2016-06-11] MEDS: TRIHEXYPHENIDYL HCL 5 MG TABLET PO SCH ×2 (09:25→16:22)
[2016-06-11] MEDS: OLANZapine 10 MG RAPDIS TABLET PO SCH ×2 (09:26→16:23)
[2016-06-11] MEDS: TERBINAFINE HCL 1% 30 GM CREAM TP SCH ×2 (09:28→16:24)
[2016-06-11] MEDS ORDERED: TRIH5TAB2 PO (10:03)
[2016-06-11] MEDS ORDERED: OLAN5Z PO (10:04)
[2016-06-11] MEDS ORDERED: OLAN10TA6 PO (10:05)
[2016-06-11] MEDS ORDERED: DIVA500T52 PO (10:05)
[2016-06-11] MEDS ORDERED: TRAZ-147 PO (10:06)
[2016-06-11] MEDS ORDERED: FLUD25I IM (10:06)
[2016-06-11] MEDS ORDERED: VITAD1000 PO (10:09)
[2016-06-11] MEDS: LORazepam 2 MG TABLET PO PRN (16:23)
[2016-06-11 16:45] VITALS: BP 122/79
[2016-06-11] MEDS: TraZODone HCL 100 MG TABLET PO SCH (20:16)
[2016-06-12] MEDS: DIVALPROEX SODIUM 500 MG ER TABLET PO SCH ×2 (09:02→20:40)
[2016-06-12] MEDS: OLANZapine 10 MG RAPDIS TABLET PO SCH ×2 (09:02→16:16)
[2016-06-12] MEDS: CHOLECALCIFEROL (VIT D3) 1,000 UNITS TABLET PO SCH (09:03)
[2016-06-12] MEDS: TRIHEXYPHENIDYL HCL 5 MG TABLET PO SCH ×2 (09:03→16:16)
[2016-06-12] MEDS: TERBINAFINE HCL 1% 30 GM CREAM TP SCH ×2 (09:04→16:17)
[2016-06-12 10:39] VITALS: BP 113/77
[2016-06-12] MEDS: LORazepam 2 MG TABLET PO PRN (16:16)
[2016-06-12 16:45] VITALS: BP 118/78
[2016-06-12] MEDS: TraZODone HCL 100 MG TABLET PO SCH (20:40)
[2016-06-13] MEDS: TERBINAFINE HCL 1% 30 GM CREAM TP SCH ×2 (09:00→17:00)
[2016-06-13 10:02] VITALS: BP 112/74
[2016-06-13] MEDS: DIVALPROEX SODIUM 500 MG ER TABLET PO SCH ×2 (10:08→20:14)
[2016-06-13] MEDS: TRIHEXYPHENIDYL HCL 5 MG TABLET PO SCH ×2 (10:08→17:02)
[2016-06-13] MEDS: CHOLECALCIFEROL (VIT D3) 1,000 UNITS TABLET PO SCH (10:08)
[2016-06-13] MEDS: OLANZapine 10 MG RAPDIS TABLET PO SCH ×2 (10:09→17:02)
[2016-06-13 16:30] VITALS: BP 116/71
[2016-06-13] MEDS: TraZODone HCL 100 MG TABLET PO SCH (20:15)
[2016-06-13] MEDS: ZOLPIDEM TARTRATE 10 MG TABLET PO PRN (20:53)
[2016-06-14 09:10] VITALS: BP 110/75
[2016-06-14] MEDS: TRIHEXYPHENIDYL HCL 5 MG TABLET PO SCH ×2 (09:30→16:24)
[2016-06-14] MEDS: OLANZapine 10 MG RAPDIS TABLET PO SCH ×2 (09:32→16:25)
[2016-06-14] MEDS: CHOLECALCIFEROL (VIT D3) 1,000 UNITS TABLET PO SCH (09:32)
[2016-06-14] MEDS: TERBINAFINE HCL 1% 30 GM CREAM TP SCH ×2 (09:34→16:25)
[2016-06-14] MEDS: DIVALPROEX SODIUM 500 MG ER TABLET PO SCH ×2 (09:34→20:49)
[2016-06-14 16:48] VITALS: BP 124/76
[2016-06-14] MEDS: TraZODone HCL 100 MG TABLET PO SCH (20:49)
[2016-06-14] MEDS: LORazepam 2 MG TABLET PO PRN (20:50)
[2016-06-15] MEDS: DIVALPROEX SODIUM 500 MG ER TABLET PO SCH ×2 (08:45→21:27)
[2016-06-15] MEDS: CHOLECALCIFEROL (VIT D3) 1,000 UNITS TABLET PO SCH (08:45)
[2016-06-15] MEDS: OLANZapine 10 MG RAPDIS TABLET PO SCH ×2 (08:46→16:57)
[2016-06-15] MEDS: TRIHEXYPHENIDYL HCL 5 MG TABLET PO SCH ×2 (08:46→16:58)
[2016-06-15] MEDS: TERBINAFINE HCL 1% 30 GM CREAM TP SCH ×2 (08:50→16:58)
[2016-06-15 10:35] VITALS: BP 118/86
[2016-06-15 16:30] VITALS: BP 131/93
[2016-06-15] MEDS: LORazepam 2 MG TABLET PO PRN (16:57)
[2016-06-15] MEDS: TraZODone HCL 100 MG TABLET PO SCH (21:27)
[2016-06-16 08:04] VITALS: BP 114/84
[2016-06-16] MEDS: DIVALPROEX SODIUM 500 MG ER TABLET PO SCH ×2 (09:19→20:18)
[2016-06-16] MEDS: CHOLECALCIFEROL (VIT D3) 1,000 UNITS TABLET PO SCH (09:19)
[2016-06-16] MEDS: OLANZapine 10 MG RAPDIS TABLET PO SCH ×2 (09:20→16:28)
[2016-06-16] MEDS: TERBINAFINE HCL 1% 30 GM CREAM TP SCH ×2 (09:21→16:27)
[2016-06-16] MEDS: TRIHEXYPHENIDYL HCL 5 MG TABLET PO SCH ×2 (09:22→16:27)
[2016-06-16 17:10] VITALS: BP 134/91
[2016-06-16] MEDS: TraZODone HCL 100 MG TABLET PO SCH (20:18)
[2016-06-17 08:17] VITALS: BP 141/94
[2016-06-17] MEDS: TERBINAFINE HCL 1% 30 GM CREAM TP SCH ×2 (09:00→16:09)
[2016-06-17] MEDS: DIVALPROEX SODIUM 500 MG ER TABLET PO SCH ×2 (09:10→20:12)
[2016-06-17] MEDS: TRIHEXYPHENIDYL HCL 5 MG TABLET PO SCH ×2 (09:10→16:08)
[2016-06-17] MEDS: CHOLECALCIFEROL (VIT D3) 1,000 UNITS TABLET PO SCH (09:10)
[2016-06-17] MEDS: OLANZapine 10 MG RAPDIS TABLET PO SCH ×2 (09:10→16:08)
[2016-06-17 16:21] VITALS: BP 134/90
[2016-06-17 16:22] VITALS: BP 134/90
[2016-06-17] MEDS: TraZODone HCL 100 MG TABLET PO SCH (20:12)
[2016-06-17] MEDS: ZOLPIDEM TARTRATE 10 MG TABLET PO PRN (23:01)
[2016-06-18 07:52] LABS: BASOPHILS % (AUTO) 0.8 % (0.0-2.0); HEMATOCRIT 46.1 % (41-53); HEMOGLOBIN 15.5 g/dL (13.5-17.5); LYMPHOCYTES # (AUTO) 2.7 K/uL (1.0-4.8); LYMPHOCYTES % (AUTO) 39.1 % (22.0-44.0); MEAN CORPUSCULAR HEMOGLOBIN 30.5 pg (26.0-34.0); MEAN CORPUSCULAR HGB CONC 33.7 G/dL (31.0-37.0); MEAN CORPUSCULAR VOLUME 90 fL (80-100); MONOCYTES # (AUTO) 0.5 K/uL (0.1-1.0); MONOCYTES % (AUTO) 6.6 % (2.0-9.0); NEUTROPHILS # (AUTO) 3.4 K/uL (1.8-7.7); NEUTROPHILS % (AUTO) 48.5 % (40.0-70.0); PLATELET COUNT (AUTO) 203 K/uL (150-450); RED CELL DISTRIBUTION WIDTH 13.8 % (11.5-14.5); WHITE BLOOD COUNT (AUTO) 6.9 K/uL (4.5-11.0)
[2016-06-18 08:11] LABS: AMYLASE 47 U/L (25-115); VALPROIC ACID 94 mcg/mL (50-100)
[2016-06-18 08:45] VITALS: BP 104/68
[2016-06-18] MEDS: TERBINAFINE HCL 1% 30 GM CREAM TP SCH ×2 (09:00→16:49)
[2016-06-18] MEDS: CHOLECALCIFEROL (VIT D3) 1,000 UNITS TABLET PO SCH (09:01)
[2016-06-18] MEDS: TRIHEXYPHENIDYL HCL 5 MG TABLET PO SCH ×2 (09:01→16:44)
[2016-06-18] MEDS: OLANZapine 10 MG RAPDIS TABLET PO SCH ×2 (09:01→16:45)
[2016-06-18] MEDS: DIVALPROEX SODIUM 500 MG ER TABLET PO SCH ×2 (09:01→20:10)
[2016-06-18 16:12] VITALS: BP 138/93
[2016-06-18 16:40] VITALS: BP 131/78
[2016-06-18] MEDS: TraZODone HCL 100 MG TABLET PO SCH (20:10)
[2016-06-18] MEDS: ZOLPIDEM TARTRATE 10 MG TABLET PO PRN (21:47)
[2016-06-19] MEDS: CHOLECALCIFEROL (VIT D3) 1,000 UNITS TABLET PO SCH (08:52)
[2016-06-19] MEDS: DIVALPROEX SODIUM 500 MG ER TABLET PO SCH (08:52)
[2016-06-19] MEDS: TRIHEXYPHENIDYL HCL 5 MG TABLET PO SCH (08:52)
[2016-06-19] MEDS: OLANZapine 10 MG RAPDIS TABLET PO SCH (08:53)
[2016-06-19] MEDS: TERBINAFINE HCL 1% 30 GM CREAM TP SCH ×2 (08:54→08:55)
[2016-06-19 08:57] VITALS: BP 144/83
== END 2016-06-19 17:00 | disposition home or self-care (01) | DRG 750 ==
LOC: EDSTATUS 16:57 → B3A 18:10 → 3EI 05-25 18:45
PROVIDERS: ADMIT Psychiatry & Neurology Psychiatry; ATTEND Psychiatry & Neurology Psychiatry
DX: F25.0 Schizoaffective disorder, bipolar type (principal); R45.851 Suicidal ideations; E55.9 Vitamin D deficiency, unspecified; E58 Dietary calcium deficiency; S61.512A Laceration without foreign body of left wrist, initial encounter; D72.829 Elevated white blood cell count, unspecified; E83.51 Hypocalcemia; F20.0 Paranoid schizophrenia; R45.850 Homicidal ideations; D17.30 Benign lipomatous neoplasm of skin and subcutaneous tissue of unspecified sites; F17.200 Nicotine dependence, unspecified, uncomplicated; R00.0 Tachycardia, unspecified; G47.00 Insomnia, unspecified; K02.9 Dental caries, unspecified; E87.6 Hypokalemia; K21.9 Gastro-esophageal reflux disease without esophagitis; K59.00 Constipation, unspecified; N50.3 Cyst of epididymis; N43.3 Hydrocele, unspecified; N50.819 Testicular pain, unspecified; Z91.14 Patient's other noncompliance with medication regimen; Z71.6 Tobacco abuse counseling
CPT/HCPCS: 76870; 80159; 82306; 83615; 83735; 84100; 84132; 87081; J1200; J1630; J2060; J2680; J3490; Q0162

== ENCOUNTER 2016-05-25 08:57 | Emergency (ER) | payer MEDICAID, OTHER ==
[~2016-05-25] VITALS: Ht 177.8 cm; Wt 77.3 kg
[~2016-05-25 08:57] MED LIST changes: +FLUP10 PO; -FLUP5 PO
[2016-05-25 10:19] VITALS: BP 129/85
== END 2016-05-25 10:40 | disposition home or self-care (01) ==
LOC: EMS 09:05
DX: F31.9 Bipolar disorder, unspecified (principal); N50.9 Disorder of male genital organs, unspecified; F20.9 Schizophrenia, unspecified; F17.210 Nicotine dependence, cigarettes, uncomplicated
CPT/HCPCS: 99285

== ENCOUNTER 2016-07-21 10:37 | Inpatient (IN) | payer MEDICAID, OTHER ==
[~2016-07-21] VITALS: Ht 177.8 cm; Wt 90.9 kg
[~2016-07-21 10:37] MED LIST changes: +DIVA500T52 PO; +FLUD25I IM; -FLUP10 PO; -LITH600 PO; +OLAN10TA6 PO; +OLAN5Z PO; +TRAZ-147 PO; +TRIH5TAB2 PO; +VITAD1000 PO
[2016-07-21] MEDS ORDERED: TEMA15CA PO (11:39)
[2016-07-21] MEDS ORDERED: ZOLP5TAB2 PO (11:39)
[2016-07-21 12:37] LABS: SALICYLATE 6.6 mg/dL (2.8-20.0)
[2016-07-21 12:39] LABS: ANION GAP 9 mmol/L (8-16); CALCIUM, TOTAL 9.2 mg/dL (8.8-10.5); CARBON DIOXIDE 29 mmol/L (22-29); CHLORIDE 103 mmol/L (98-107); CREATININE 0.79 mg/dL (0.60-1.30); GLOMERULAR FILTR. RATE CALC > 60 mL/min (>60); POTASSIUM 4.5 mmol/L (3.5-5.1); SODIUM SERUM 141 mmol/L (136-145); UREA NITROGEN, BLOOD 8 mg/dL (7-18)
[2016-07-21 12:45] LABS: ALANINE AMINOTRANSFERASE 34 U/L (12-78); ALBUMIN 4.1 g/dL (3.4-5.0); ASPARTATE AMINOTRANSFERASE 15 U/L (15-37); BILIRUBIN,TOTAL 0.4 mg/dL (0.1-1.0); TOTAL PROTEIN, SERUM 7.6 g/dL (6.4-8.2); VALPROIC ACID 13 mcg/mL (50-100)
[2016-07-21 12:56] LABS: BASOPHILS % (AUTO) 0.4 % (0.0-2.0); HEMATOCRIT 51.3 % (41-53); HEMOGLOBIN 17.2 g/dL (13.5-17.5); LYMPHOCYTES # (AUTO) 2.2 K/uL (1.0-4.8); LYMPHOCYTES % (AUTO) 21.8 % (22.0-44.0); MEAN CORPUSCULAR HEMOGLOBIN 31.1 pg (26.0-34.0); MEAN CORPUSCULAR HGB CONC 33.5 G/dL (31.0-37.0); MEAN CORPUSCULAR VOLUME 93 fL (80-100); MONOCYTES # (AUTO) 0.6 K/uL (0.1-1.0); MONOCYTES % (AUTO) 6.4 % (2.0-9.0); NEUTROPHILS # (AUTO) 6.8 K/uL (1.8-7.7); NEUTROPHILS % (AUTO) 68.4 % (40.0-70.0); PLATELET COUNT (AUTO) 295 K/uL (150-450); RED BLOOD CELL COUNT(AUTO) 5.52 MIL/uL (4.50-5.90); RED CELL DISTRIBUTION WIDTH 14.4 % (11.5-14.5)
[2016-07-21 12:57] LABS: ACETAMINOPHEN < 2 mcg/mL (10-30)
[2016-07-21] MEDS ORDERED: ZOLPIDEM TARTRATE 10 MG TABLET PO PRN (15:00)
[2016-07-21 17:03] VITALS: BP 130/80
[2016-07-21] MEDS: DIVALPROEX SODIUM 500 MG DR TABLET PO SCH (20:50)
[2016-07-21] MEDS: OLANZapine 10 MG RAPDIS TABLET PO SCH (20:50)
[2016-07-21] MEDS: TraZODone HCL 100 MG TABLET PO SCH (20:50)
[2016-07-22] MEDS ORDERED: MAG HYDROX/AL HYDROX/SIMETH ES 30 ML SUSPENSION UDCUP PO PRN (06:45)
[2016-07-22] MEDS ORDERED: LOPERAMIDE HCL 2 MG CAPSULE PO PRN (06:45)
[2016-07-22] MEDS ORDERED: BACITRACIN 28.4 GM OINTMENT TP PRN (06:45)
[2016-07-22] MEDS ORDERED: CloNIDine HCL 0.1 MG TABLET PO PRN (06:45)
[2016-07-22] MEDS ORDERED: ALBUTEROL SULFATE HFA 90 MCG/PUFF 8 GM INHALER IH PRN (06:45)
[2016-07-22] MEDS ORDERED: ACETAMINOPHEN 325 MG TABLET PO PRN (06:45)
[2016-07-22] MEDS ORDERED: PETROLATUM,WHITE 71 GM JELLY TP PRN (06:45)
[2016-07-22] MEDS ORDERED: IBUPROFEN 600 MG TABLET PO PRN (06:45)
[2016-07-22] MEDS ORDERED: BENZOCAINE/MENTHOL LOZENGE MM PRN (06:45)
[2016-07-22] MEDS ORDERED: MAGNESIUM HYDROXIDE SUSPENSION 30 ML UDCUP PO PRN (06:45)
[2016-07-22] MEDS ORDERED: ONDANSETRON HCL 4 MG TABLET PO PRN (06:45)
[2016-07-22 07:00] VITALS: BP 130/78
[2016-07-22 08:12] VITALS: BP 121/65
[2016-07-22] MEDS: DIVALPROEX SODIUM 500 MG DR TABLET PO SCH ×2 (08:32→20:51)
[2016-07-22] MEDS: NICOTINE 21 MG/24 HOUR PATCH TD SCH (08:37)
[2016-07-22] MEDS: CHOLECALCIFEROL (VIT D3) 1,000 UNITS TABLET PO SCH (08:37)
[2016-07-22] MEDS: QUEtiapine FUMARATE 100 MG TABLET PO PRN (09:09)
[2016-07-22] MEDS: LORazepam 2 MG TABLET PO PRN ×2 (09:09→20:55)
[2016-07-22 16:00] VITALS: BP 112/65
[2016-07-22] MEDS: TraZODone HCL 100 MG TABLET PO SCH (20:51)
[2016-07-22] MEDS: OLANZapine 10 MG RAPDIS TABLET PO SCH (20:51)
[2016-07-23 06:59] VITALS: BP 116/63
[2016-07-23 08:13] VITALS: BP 126/56
[2016-07-23] MEDS: NICOTINE 21 MG/24 HOUR PATCH TD SCH (09:00)
[2016-07-23] MEDS: CHOLECALCIFEROL (VIT D3) 1,000 UNITS TABLET PO SCH (09:57)
[2016-07-23] MEDS: DIVALPROEX SODIUM 500 MG DR TABLET PO SCH ×2 (09:57→20:57)
[2016-07-23 16:00] VITALS: BP 124/89
[2016-07-23] MEDS: LORazepam 2 MG TABLET PO PRN (16:46)
[2016-07-23] MEDS: OLANZapine 10 MG RAPDIS TABLET PO SCH (20:57)
[2016-07-23] MEDS: TraZODone HCL 100 MG TABLET PO SCH (20:57)
[2016-07-24 00:45] VITALS: BP 121/74
[2016-07-24] MEDS: LORazepam 2 MG TABLET PO PRN ×3 (00:46→20:49)
[2016-07-24] MEDS: CHOLECALCIFEROL (VIT D3) 1,000 UNITS TABLET PO SCH (08:21)
[2016-07-24] MEDS: DIVALPROEX SODIUM 500 MG DR TABLET PO SCH ×2 (08:21→20:49)
[2016-07-24] MEDS: NICOTINE 21 MG/24 HOUR PATCH TD SCH (08:22)
[2016-07-24 08:37] VITALS: BP 133/76
[2016-07-24 16:00] VITALS: BP 130/74
[2016-07-24] MEDS: OLANZapine 10 MG RAPDIS TABLET PO SCH (20:49)
[2016-07-24] MEDS: TraZODone HCL 100 MG TABLET PO SCH (20:49)
[2016-07-25 06:00] VITALS: BP 116/70
[2016-07-25 08:00] VITALS: BP 119/79
[2016-07-25 08:02] LABS: BASOPHILS % (AUTO) 0.3 % (0.0-2.0); EOSINOPHILS % (AUTO) 2.4 % (1.0-6.0); HEMATOCRIT 52.2 % (41-53); HEMOGLOBIN 17.2 g/dL (13.5-17.5); MEAN CORPUSCULAR HGB CONC 32.9 G/dL (31.0-37.0); MEAN CORPUSCULAR VOLUME 94 fL (80-100); MONOCYTES # (AUTO) 0.6 K/uL (0.1-1.0); MONOCYTES % (AUTO) 5.5 % (2.0-9.0); NEUTROPHILS # (AUTO) 7.1 K/uL (1.8-7.7); NEUTROPHILS % (AUTO) 64.8 % (40.0-70.0); PLATELET COUNT (AUTO) 288 K/uL (150-450); RED BLOOD CELL COUNT(AUTO) 5.55 MIL/uL (4.50-5.90)
[2016-07-25 08:36] LABS: AMYLASE 36 U/L (25-115); VALPROIC ACID 86 mcg/mL (50-100)
[2016-07-25] MEDS: NICOTINE 21 MG/24 HOUR PATCH TD SCH (09:00)
[2016-07-25] MEDS: DIVALPROEX SODIUM 500 MG DR TABLET PO SCH ×2 (09:21→20:52)
[2016-07-25] MEDS: CHOLECALCIFEROL (VIT D3) 1,000 UNITS TABLET PO SCH (09:21)
[2016-07-25 16:00] VITALS: BP 120/84
[2016-07-25] MEDS: QUEtiapine FUMARATE 100 MG TABLET PO PRN (17:33)
[2016-07-25] MEDS: LORazepam 2 MG TABLET PO PRN (17:33)
[2016-07-25] MEDS: TraZODone HCL 100 MG TABLET PO SCH (20:52)
[2016-07-25] MEDS: OLANZapine 10 MG RAPDIS TABLET PO SCH (20:52)
[2016-07-26 06:15] VITALS: BP 108/60
[2016-07-26 08:17] VITALS: BP 129/69
[2016-07-26] MEDS: CHOLECALCIFEROL (VIT D3) 1,000 UNITS TABLET PO SCH (08:27)
[2016-07-26] MEDS: DIVALPROEX SODIUM 500 MG DR TABLET PO SCH ×2 (08:27→20:45)
[2016-07-26] MEDS: NICOTINE 21 MG/24 HOUR PATCH TD SCH (08:36)
[2016-07-26] MEDS: LORazepam 2 MG TABLET PO PRN ×2 (08:36→20:46)
[2016-07-26 16:29] VITALS: BP 114/87
[2016-07-26] MEDS: TraZODone HCL 100 MG TABLET PO SCH (20:45)
[2016-07-26] MEDS: OLANZapine 10 MG RAPDIS TABLET PO SCH (20:45)
[2016-07-27 06:20] VITALS: BP 126/76
[2016-07-27 08:46] VITALS: BP 126/75
[2016-07-27] MEDS ORDERED: FluPHENAZine DECANOATE 25 MG/ML IM SCH (09:00)
[2016-07-27] MEDS: CHOLECALCIFEROL (VIT D3) 1,000 UNITS TABLET PO SCH (10:01)
[2016-07-27] MEDS: DIVALPROEX SODIUM 500 MG DR TABLET PO SCH ×2 (10:01→20:39)
[2016-07-27] MEDS: NICOTINE 21 MG/24 HOUR PATCH TD SCH (10:05)
[2016-07-27 16:15] VITALS: BP 122/67
[2016-07-27] MEDS: LORazepam 2 MG TABLET PO PRN (17:18)
[2016-07-27] MEDS: QUEtiapine FUMARATE 100 MG TABLET PO PRN (17:18)
[2016-07-27] MEDS: TraZODone HCL 100 MG TABLET PO SCH (20:39)
[2016-07-27] MEDS: OLANZapine 10 MG RAPDIS TABLET PO SCH (20:39)
[2016-07-28 06:31] VITALS: BP 120/89
[2016-07-28 08:50] VITALS: BP 115/66
[2016-07-28] MEDS: CHOLECALCIFEROL (VIT D3) 1,000 UNITS TABLET PO SCH (09:02)
[2016-07-28] MEDS: DIVALPROEX SODIUM 500 MG DR TABLET PO SCH (09:02)
[2016-07-28] MEDS: NICOTINE 21 MG/24 HOUR PATCH TD SCH (09:03)
== END 2016-07-28 14:45 | disposition home or self-care (01) | DRG 750 ==
LOC: EMS 10:39 → B2S 15:45 → B3A 20:36
PROVIDERS: ADMIT Psychiatry & Neurology Psychiatry; ATTEND Psychiatry & Neurology Psychiatry
DX: F25.0 Schizoaffective disorder, bipolar type (principal); R45.851 Suicidal ideations; E55.9 Vitamin D deficiency, unspecified; F17.210 Nicotine dependence, cigarettes, uncomplicated; G47.00 Insomnia, unspecified; K59.00 Constipation, unspecified; E78.5 Hyperlipidemia, unspecified; K21.9 Gastro-esophageal reflux disease without esophagitis; Z91.19 Patient's noncompliance with other medical treatment and regimen; Z91.5 Personal history of self-harm; Z71.6 Tobacco abuse counseling; Z79.899 Other long term (current) drug therapy
CPT/HCPCS: 93005; 99285; G0480; G0481; J2680

== ENCOUNTER 2016-08-08 21:59 | Emergency (ER) | payer MEDICAID, OTHER ==
[~2016-08-08] VITALS: Ht 177.8 cm; Wt 86.4 kg
[~2016-08-08 21:59] MED LIST changes: -OLAN10TA6 PO; -TRIH5TAB2 PO
[2016-08-08 22:21] LABS: BASOPHILS # (AUTO) 0.01 K/uL (0.00-0.20); BASOPHILS % (AUTO) 0.1 % (0.0-2.0); EOSINOPHILS # (AUTO) 0.47 K/uL (0.00-0.70); HEMATOCRIT 44.3 % (41-53); HEMOGLOBIN 15.3 g/dL (13.5-17.5); LYMPHOCYTES # (AUTO) 2.7 K/uL (1.0-4.8); LYMPHOCYTES % (AUTO) 20.3 % (22.0-44.0); MEAN CORPUSCULAR HEMOGLOBIN 31.8 pg (26.0-34.0); MEAN CORPUSCULAR HGB CONC 34.5 G/dL (31.0-37.0); MEAN CORPUSCULAR VOLUME 92 fL (80-100); MONOCYTES # (AUTO) 0.2 K/uL (0.1-1.0); MONOCYTES % (AUTO) 1.2 % (2.0-9.0); NEUTROPHILS # (AUTO) 10.1 K/uL (1.8-7.7); PLATELET COUNT (AUTO) 345 K/uL (150-450); RED BLOOD CELL COUNT(AUTO) 4.81 MIL/uL (4.50-5.90); RED CELL DISTRIBUTION WIDTH 13.2 % (11.5-14.5); WHITE BLOOD COUNT (AUTO) 13.5 K/uL (4.5-11.0)
[2016-08-08 22:30] LABS: ANION GAP 13 mmol/L (8-16); CALCIUM, TOTAL 8.7 mg/dL (8.8-10.5); CARBON DIOXIDE 22 mmol/L (22-29); CHLORIDE 98 mmol/L (98-107); CREATININE 0.84 mg/dL (0.60-1.30); GLOMERULAR FILTR. RATE CALC > 60 mL/min (>60); SODIUM SERUM 133 mmol/L (136-145); UREA NITROGEN, BLOOD 8 mg/dL (7-18)
[2016-08-08 22:33] LABS: ALANINE AMINOTRANSFERASE 45 U/L (12-78); ALBUMIN 3.7 g/dL (3.4-5.0); ASPARTATE AMINOTRANSFERASE 27 U/L (15-37); BILIRUBIN,TOTAL 0.4 mg/dL (0.1-1.0); TOTAL PROTEIN, SERUM 7.2 g/dL (6.4-8.2)
[2016-08-08 22:54] VITALS: BP 129/87
[2016-08-08] MEDS ORDERED: LORazepam 2 MG TABLET PO ONE (23:00)
[2016-08-08] MEDS ORDERED: HALOPERIDOL 5 MG TABLET PO ONE (23:00)
== END 2016-08-08 23:31 | disposition home or self-care (01) ==
LOC: EMS 22:03
DX: F20.0 Paranoid schizophrenia (principal); F31.9 Bipolar disorder, unspecified; F17.210 Nicotine dependence, cigarettes, uncomplicated
CPT/HCPCS: 36415; 80053; 80307; 85025; 99285; 99406; G0480

== ENCOUNTER 2020-12-06 12:09 | Emergency (ER) | payer OTHER ==
[~2020-12-06] VITALS: Ht 177.8 cm; Wt 100.0 kg
[~2020-12-06 12:09] MED LIST changes: +CHOL100018 PO; +DIVA-80 PO; -DIVA500T52 PO; +OLAN5TAB94 PO; -OLAN5Z PO; -TRAZ-147 PO; +TRAZ-257 PO; -VITAD1000 PO
[2020-12-06 12:12] VITALS: BP 160/85
[2020-12-06] MEDS ORDERED: ATOR40TA28 PO (12:36)
[2020-12-06] MEDS ORDERED: HYDR50CA9 PO (12:36)
[2020-12-06] MEDS ORDERED: NIAC500T7 PO (12:36)
[2020-12-06] MEDS ORDERED: BISA10SU11 PR (12:36)
[2020-12-06] MEDS ORDERED: BENZ1TAB10 PO (12:36)
[2020-12-06] MEDS ORDERED: OLAN10TA74 PO (12:36)
[2020-12-06] MEDS ORDERED: MAG355OR29 PO (12:36)
[2020-12-06] MEDS ORDERED: SILD20TA PO (12:36)
[2020-12-06] MEDS ORDERED: TEMA15CA PO (12:36)
[2020-12-06] MEDS ORDERED: DIPH25TA20 PO (12:36)
[2020-12-06] MEDS ORDERED: CHOL500013 PO (12:36)
[2020-12-06] MEDS ORDERED: FENO160T14 PO (12:36)
[2020-12-06] MEDS ORDERED: DOCU-270 PO (12:36)
[2020-12-06] MEDS ORDERED: LACT30L PO (12:36)
[2020-12-06] MEDS ORDERED: OMEG1CAP45 PO (12:36)
[2020-12-06] MEDS ORDERED: MOM30 PO (12:36)
[2020-12-06] MEDS ORDERED: HALO5TAB2 PO (12:36)
[2020-12-06] MEDS ORDERED: ACET-784 PO (12:36)
[2020-12-06] MEDS ORDERED: HALO5I IM (12:36)
[2020-12-06] MEDS ORDERED: LITH300C3 PO ×2 (12:36)
[2020-12-06] MEDS ORDERED: NA P133E8 RC (12:36)
[2020-12-06] MEDS ORDERED: SILD25 PO (12:38)
== END 2020-12-06 13:29 | disposition home or self-care (01) ==
LOC: EMS 12:09
DX: F20.0 Paranoid schizophrenia (principal); I10 Essential (primary) hypertension; F31.9 Bipolar disorder, unspecified; F17.210 Nicotine dependence, cigarettes, uncomplicated; Z76.0 Encounter for issue of repeat prescription; Z79.899 Other long term (current) drug therapy
CPT/HCPCS: 99281; Z7502